=== PATIENT | female | born 1965 | race Caucasian/White ===

== ENCOUNTER 2023-08-21 10:33 | Outpatient (OUT) | payer OTHER, SELFPAY ==
--- NOTE | 2023-08-21 | ECG_ITS ---
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
--- NOTE | 2023-08-21 11:06 | CA_ITS ---
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1965 Requested By: [id number] Order Number: [id number] Reading MD: ESTEVAN HUTCHINSON Interpretive Statements Predominant rhythm is sinus w/ average rate of 72 bpm TAchycardia - max rate of 119 bpm (sinus tachycardia) - 1 episode of PSVT with longest duration of 3 beats - longest episode of 4min 7sec with rates between 105-115 bpm Bradycardia - min rate of 51 bpm, occurring during sleep - longest episode of 4min 2sec with rates between 53-57 bpm VEntricular ectopy - 250 total (<1% total) - 6 couplets - 244 PVC Patient triggered events: 14 - associated with symptoms of palpitations, lightheadedness, chest pain - associated with NSR Impression: Predominant rhythm is sinus w/ average rate of 72 bpm Fastest rate of 119 bpm (sinus tachycardia) and slowest rate of 51 bpm (occurring during sleep) 244 PVC and 6 couplets No atrial fibrillation No pauses or blocks Electronically Signed On 09-01-2023 20:43:37 EST by ESTEVAN HUTCHINSON
== END 2023-08-21 10:34 | disposition home or self-care (01) ==
LOC: CARD 10:38
DX: R00.0 Tachycardia, unspecified (principal)
CPT/HCPCS: 93005; 93242

== ENCOUNTER 2023-11-18 09:33 | Outpatient (OUT) | payer OTHER, SELFPAY ==
--- NOTE | 2023-11-18 09:37 | US_ITS ---
The [address] [address] Patient Name: FLOYD KELLER MRN: [id number] date: 1965 Sex: F Assigned Patient Location: [place] Current Patient Location: Accession/Order Number: [id number] Exam Date: 11/18/2023 09:40 Report Date: 11/18/2023 11:14 At the request of: NON-STAFF PHYSICIAN Procedure: US thyroid EXAMINATION: US thyroid HISTORY: oropharyngeal dysphasia R13.12, History of goiter Z86.39 COMPARISON: No relevant comparison available. TECHNIQUE: Sonographic images of the thyroid gland were obtained. FINDINGS: The right thyroid lobe is normal in size, contour and homogeneous echotexture measuring 5.1 x 1.3 x 1.2 cm. No focal nodules. The thyroid isthmus is normal measuring 1.1 mm. No nodules. The left thyroid lobe is normal in size, contour and homogeneous echotexture measuring 5.0 x 1.2 x 1.4 cm. No focal nodules US/US thyroid IMPRESSION: Normal examination. Electronically authenticated by: DAVID LOWERY Date: 11/18/2023 11:14
--- OUTSIDE RECORDS SUMMARY | 2023-11-18 09:45 | XMS_ITS | CCD ---
Author Organization [facility] Care Team Providers Care Regional Sales Coordinator Name Role Phone DO Stefan Alford Emergency Provider Unavai labkeya NO FAMILY, PHYSICIAN Primary Care Provider Unava ilable DO Cyril Amaya A Attending Provider [phone] Nam, Amaya Unavailable FRANCISCA May Attending Provider NO FAMILY, PHYSICIAN Primary Care Unavailable Stefan Alford Admitting Unavailable Stefan Alford Attending Unavailable NON STAFF Primary Care Unavailable Alyssa May Admitting Unavailable Alyssa May Attending Unavailable Cyril, Amaya A Primary Care Unavailable Nam, Amaya A Attending Unavailable Cyril, Amaya A Admitting Unavailable Nam, Amaya A Primary Care Unavailable Cyril, Amaya A Attending Unavailable Cyril, Amaya A Admitting Unavailable Nam, Amaya A Primary Care Unavailable Nam, Amaya A Attending Unavailable Nam, Amaya A Admitting Unavailable NO FAMILY, PHYSICIAN Primary Care Unavailable Nam, Amaya A Admitting Unavailable Nam, Amaya A Attending Unavailable Nam, Amaya A Primary Care Unavailable Nam, Amaya A Attending Unavailable Cyril, Amaya A Admitting Unavailable Medications Current Medications Medication Drug Class(es) Dates Sig (Normalized) Sig (Original) [id number] 60 actuat albuterol 0.09 mg/actuat metered dose inhaler (16 sources) beta2-Adrenergic Agonist Start: 12-17-2022 take 1 puff(s) by inhalation every four hours as needed Albuterol Sulfate HFA 108 (90 Base) MCG/ACT 1 puff as needed Inhalation every 4 hrs for 30 days PRN November, Active Start: 12-17-2022 take 1 puff(s) by in halation every four hours as needed Albuterol Sulfate HFA 108 (90 Base) MCG/ACT 1 puff as needed Inhalation every 4 hrs for 30 days PRN November, Active Start: 12-17-2022 take 1 puff(s) by in halation every four hours as needed Albuterol Sulfate HFA 108 (90 Base) MCG/ACT 1 puff as needed Inhalation every 4 hrs for 30 days PRN November, Active atorvastatin 10 mg oral tablet (12 sources) HMG-CoA Reductase Inhibitor Start: 01-21-2023 take 1 tablet by mouth every twenty-four hours Atorvastatin Calcium 10 MG 1 tablet Orally Once a day for 90 days Jan, Active 24 hr buPROPion hydrochloride 150 mg extended release oral tablet (4 sources) Aminoketone Start: 03-20-2023 take 1 tablet by mouth every twenty-four hours buPROPion HCl ER (XL) 150 MG 1 tablet in the morning Orally Once a day for 30 days Mar, Active clonazePAM 1 mg oral tablet (16 sources) Benzodiazepine Start: 06-15-2023 clonazePAM 1 MG TAKE 1 TABLET BY MOUTH EVERY DAY FOR 30 DAYS for 30 May, Active Start: 03-20-2023 take 1 tablet by shira once daily as needed clonazePAM 1 MG 1 tablet PRN Orally Once a day for 30 days Mar, Active take 1 tablet by shira once daily as needed clonazePAM 1 MG 1 tablet PRN Orally Once a day for 30 days Active DULoxetine 30 mg delayed release oral capsule (20 sources) Serotonin and Norepinephrine Reuptake Inhibitor take 1 capsule by mouth once daily at bedtime DULoxetine HCl 30 MG 1 capsule at bedtime along with a 60 mg capsule Orally Once a day for 90 days Active take 1 capsule by mo [facility] at bedtime, then take 1 capsule by mouth once daily DULoxetine HCl 60 MG 1 capsule at bedtim e with one 30 mg capsule Orally Once a day for 90 days Active levocetirizine dihydrochloride 5 mg oral tablet (16 sources) Histamine-1 Receptor Antagonist take 1 tablet by mouth every twenty-four hours Xyzal 5 MG 1 tablet in the evening Orally Once a day Active nortriptyline 25 mg oral capsule (16 sources) Tricyclic Antidepressant take 2 capsules by mouth at bedtime Nortriptyline HCl 25 MG 2 capsules Orally at bedtime for 90 days Active Problems Active Problems Problem Classification Problem Date Documented Date Episodic/Chronic Anxiety disorders (19 sources) Generalized anxiety disorder; Translations: [Generalized anxiety disorder] Onset: 12-29-2022 Chronic Asthma (17 sources) Exercise induced bronchospasm; Translations: [Exercise induced bronchospasm] Chronic Cardiac dysrhythmias (1 source) Tachycardia, unspecified; Translations: [Tachycardia, unspecified] Onset: 08-12-2023 Episodic Disorders of lipid metabolism (15 sources) Hyperlipidemia, unspecified; Translations: [Hyperlipidemia] Onset: 03-04-2023 Chronic Malaise and fatigue (1 source) Other fatigue; Translations: [Other fatigue] Onset: 08-12-2023 Episodic Mood disorders (5 sources) Major depressive disorder, single episode, unspecified; Translations: [Depression] Chronic Other aftercare (1 source) Other extermination inspector (current) drug therapy Episodic Other connective tissue disease (7 sources) Pain in upper limb; Translations: [Pain in arm, unspecified] 12-12-2022 Episodic Other ear and sense organ disorders (1 source) Otalgia, right ear Episodic Other nervous system disorders (16 sources) Peripheral nerve disease ; Translations: [Polyneuropathy, unspecified] Chronic Other nervous system disorders (3 sources) Polyneuropathy, unspecified; Translations: [Polyneuropathy, unspecified] Onset: 12-29-2022 Chronic Other nervous system disorders (6 sources) Reduced concentration; Translations: [Attention and concentration deficit] Chronic Other screening for suspected conditions (not mental disorders or infectious disease) (2 sources) Encounter for other screening for malignant neoplasm of breast; Translations: [Encounter for screening for malignant neoplasm of colon] Episodic Other skin disorders (1 source) Disorder of the skin and subcutaneous tissue, unspecified Episodic Otitis media and related conditions (1 source) Other specified disorders of Eustachian tube, right ear Episodic Residual codes; unclassified (1 source) Flushing; Translations: [Flushing] Onset: 08-12-2023 Episodic Unclassified (1 source) Encounter for screening mammogram for malignant neoplasm of breast; Translations: [Encounter for screening mammogram for malignant neoplasm of breast] Onset: 01-08-2023 Unclassified (1 source) Encounter for screening for cardiovascular disorders; Translations: [Encounter for screening for cardiovascular disorders] Onset: 01-02-2023 Past or Other Problems Problem Classification Problem Date Documented Da te Episodic/Chronic Genitourinary symptoms and ill-defined conditions (2 sources) Dysuria; Translations: [Dysuria] Onset: 12-17-2022 Episodic Other connective tissue disease (1 source) Pain in left arm; Translations: [Pain in left arm] Onset: 12-12-2022 Episodic Results Test Name Value Interpretation Reference Range Facility Alanine aminotransferase [En zymatic activity/volume] in Serum or PlasmaOrdered By: Alyssa May on 08-12-2023 ALT [Catalytic activity/Vol] 16 U/L 7-52 [facility] Albumin [Mass/volume] in Ser um or Plasma by Bromocresol green (BCG) dye binding methoOrdered By: Alyssa May on 08-12-2023 Albumin BCG dye [Mass/Vol] 4.4 g/dL 3.5-5.7 [facility] Alkaline phosphatase [Enzyma tic activity/volume] in Serum or PlasmaOrdered By: Alyssa May on 08-12-2023 ALP [Catalytic activity/Vol] 81 U/L 34-104 [facility] Aspartate aminotransferase [ Enzymatic activity/volume] in Serum or PlasmaOrdered By: Alyssa May on 08-12-2023 AST [Catalytic activity/Vol] 17 U/L 13-39 [facility] Basophils Auto (Bld) [#/Vol] Ordered By: Alyssa May on 08-12-2023 Basophils (Bld) [#/Vol] 0.1 10*3/uL 0.0-0.2 [facility] Basophils/100 WBC Auto (Bld) Ordered By: Alsysa May on 08-12-2023 Basophils/100 WBC (Bld) 1.1 % . [facility] Bilirubin.total [Mass/volume ] in Serum or PlasmaOrdered By: Alyssa May on 08-12-2023 Bilirubin [Mass/Vol] 0.8 mg/dL 0.3-1.0 [facility] Calcium [Mass/volume] in Ser um or PlasmaOrdered By: Alyssa May on 08-12-2023 Calcium [Mass/Vol] 9.4 mg/dL 8.6-10.3 [facility] Carbon dioxide, total [Moles /volume] in Serum or PlasmaOrdered By: Alyssa May on 08-12-2023 CO2 [Moles/Vol] 26.2 mmol/L 21.0-31.0 [facility] Chloride [Moles/volume] in S thomas or PlasmaOrdered By: Alyssa May on 08-12-2023 Chloride [Moles/Vol] 106 mmol/L 98-107 [facility] Cholesterol [Mass/volume] in Serum or PlasmaOrdered By: Alyssa May on 08-12-2023 Cholesterol [Mass/Vol] 147 mg/dL 140-200 [facility] Comment on above: Chol less than 200 m g/dl low riskChol 201-239 mg/dl borderline riskChol 240 mg/dl and greater high risk Cholesterol in LDL Calc [Mas s/Vol]Ordered By: Alyssa May on 08-12-2023 Cholesterol in LDL [Mass/Vol] 63 mg/dL 0-100 [facility] Comment on above: LDL ATP III CLASSIFI CATIONLDL less than 100 mg/dL OptimalLDL 100-129 mg/dL Near or above optimalLDL 130-159 mg/dL Borderline highLDL 160-189 mg/dL HighLDL greater than 189 mg/dL Very high Cholesterol in VLDL Calc [Ma ss/Vol]Ordered By: Alyssa May on 08-12-2023 Cholesterol in VLDL [Mass/Vol] 13 mg/dL [facility] Complete Blood Count Auto Di ffon 08-12-2023 Basophils (Bld) [#/Vol] 0.1 10*3/uL Normal 0.0-0.2 [facility] Comment on above: Order Comment: Reaso n for Exam Tachycardia;Other fatigue Result Comment: PERF ORMED BY: [place] [address] PATHOLOGIST DANCE HALL HOSTESS CHEYENNE MCCOY M.D. Performed By: #### L H #### [facility] , #### [id number], TSH3 wRFLX, LIPID, [id number], CMP, FSH, CBC #### [facility] [address] [place] [address] Basophils/100 WBC (Bld) 1.1 % Normal . [facility] Comment on above: Order Comment: Reaso n for Exam Tachycardia;Other fatigue Performed By: #### L H #### [facility] , #### [id number], TSH3 wRFLX, LIPID, [id number], CMP, FSH, CBC #### [facility] [address] [place] [address] Eosinophils (Bld) [#/Vol] 0.2 10*3/uL Normal 0.0-0.45 [facility] Comment on above: Order Comment: Reaso n for Exam Tachycardia;Other fatigue Performed By: #### L H #### [facility] , #### [id number], TSH3 wRFLX, LIPID, [id number], CMP, FSH, CBC #### [address] Eosinophils/100 WBC (Bld) 3.4 % Normal . [facility] Comment on above: Order Comment: Reaso n for Exam Tachycardia;Other fatigue Performed By: #### L H #### [facility] , #### [id number], TSH3 wRFLX, LIPID, [id number], CMP, FSH, CBC #### [address] Erythrocyte distribution width (RBC) [Ratio] 12.8 % Normal 11.9-15.3 [facility] Comment on above: Order Comment: Reaso n for Exam Tachycardia;Other fatigue Performed By: #### L H #### [facility] , #### [id number], TSH3 wRFLX, LIPID, [id number], CMP, FSH, CBC #### [address] Hematocrit (Bld) [Volume fraction] 41.4 % Normal 34.0-46.4 [facility] Comment on above: Order Comment: Reaso n for Exam Tachycardia;Other fatigue Performed By: #### L H #### [facility] , #### [id number], TSH3 wRFLX, LIPID, [id number], CMP, FSH, CBC #### [address] Hemoglobin (Bld) [Mass/Vol] 14.0 g/dL Normal 11.8-15.4 [facility] Comment on above: Order Comment: Reaso n for Exam Tachycardia;Other fatigue Performed By: #### L H #### [facility] , #### [id number], TSH3 wRFLX, LIPID, [id number], CMP, FSH, CBC #### [facility] [address] Lymphocytes (Bld) [#/Vol] 1.1 10*3/uL Normal 1.00-4.8 [facility] Comment on above: Order Comment: Reaso n for Exam Tachycardia;Other fatigue Performed By: #### L H #### [facility] , #### [id number], TSH3 wRFLX, LIPID, [id number], CMP, FSH, CBC #### [address] Lymphocytes/100 WBC (Bld) 22.2 % Normal . [facility] Comment on above: Order Comment: Reaso n for Exam Tachycardia;Other fatigue Performed By: #### L H #### [facility] , #### [id number], TSH3 wRFLX, LIPID, [id number], CMP, FSH, CBC #### [place] [id number] [facility] MCH (RBC) [Entitic mass] 29.3 pg Normal 24.7-34.3 [facility] Comment on above: Order Comment: Reaso n for Exam Tachycardia;Other fatigue Performed By: #### L H #### [facility] , #### [id number], TSH3 wRFLX, LIPID, [id number], CMP, FSH, CBC #### [facility] [address] [place], [place] [id number] [facility] MCV (RBC) [Entitic vol] 86.9 fL Normal 80-100 [facility] Comment on above: Order Comment: Reaso n for Exam Tachycardia;Other fatigue Performed By: #### L H #### [facility] , #### [id number], TSH3 wRFLX, LIPID, [id number], CMP, FSH, CBC #### [facility] [address] [place] [address] Mean Corpuscular HGB Conc 33.7 g/dL Normal 32.0-35.0 [facility] Comment on above: Order Comment: Reaso n for Exam Tachycardia;Other fatigue Performed By: #### L H #### [facility] , #### [id number], TSH3 wRFLX, LIPID, [id number], CMP, FSH, CBC #### [facility] [address] [place] [address] Monocytes (Bld) [#/Vol] 0.3 10*3/uL Normal 0.0-0.8 [facility] Comment on above: Order Comment: Reaso n for Exam Tachycardia;Other fatigue Performed By: #### L H #### [facility] , #### [id number], TSH3 wRFLX, LIPID, [id number], CMP, FSH, CBC #### [address] Monocytes/100 WBC (Bld) 5.2 % Normal . [facility] Comment on above: Order Comment: Reaso n for Exam Tachycardia;Other fatigue Performed By: #### L H #### [facility] , #### [id number], TSH3 wRFLX, LIPID, [id number], CMP, FSH, CBC #### [facility] [address] [place] [address] Neutrophils (Bld) [#/Vol] 3.5 10*3/uL Normal 1.8-7.7 [facility] Comment on above: Order Comment: Reaso n for Exam Tachycardia;Other fatigue Performed By: #### L H #### [facility] , #### [id number], TSH3 wRFLX, LIPID, [id number], CMP, FSH, CBC #### [facility] [address] [place] [address] Neutrophils/100 WBC (Bld) 68.1 % Normal . [facility] Comment on above: Order Comment: Reaso n for Exam Tachycardia;Other fatigue Performed By: #### L H #### [facility] , #### [id number], TSH3 wRFLX, LIPID, [id number], CMP, FSH, CBC #### [facility] [address] [place] [address] NRBC% 0.1 /100{WBC} Normal 0-0.5 [facility] Comment on above: Order Comment: Reaso n for Exam Tachycardia;Other fatigue Performed By: #### L H #### [facility] , #### [id number], TSH3 wRFLX, LIPID, [id number], CMP, FSH, CBC #### [address] Platelet mean volume (Bld) [Entitic vol] 8.8 fL Normal 6.3-10.7 [facility] Comment on above: Order Comment: Reaso n for Exam Tachycardia;Other fatigue Performed By: #### L H #### [facility] , #### [id number], TSH3 wRFLX, LIPID, [id number], CMP, FSH, CBC #### [facility] [address] [place] [address] [place] Platelets (Bld) [#/Vol] 231 10*3/uL Normal 150-450 [facility] Comment on above: Order Comment: Reaso n for Exam Tachycardia;Other fatigue Performed By: #### L H #### [facility] , #### [id number], TSH3 wRFLX, LIPID, [id number], CMP, FSH, CBC #### [facility] [address] [place], [place] [id number] [facility] RBC (Bld) [#/Vol] 4.77 10*6/uL Normal 3.60-5.00 [facility] Comment on above: Order Comment: Reaso n for Exam Tachycardia;Other fatigue Performed By: #### L H #### [facility] , #### [id number], TSH3 wRFLX, LIPID, [id number], CMP, FSH, CBC #### [facility] [address] WBC (Bld) [#/Vol] 5.1 10*3/uL Normal 3.8-11.6 [facility] Comment on above: Order Comment: Reaso n for Exam Tachycardia;Other fatigue Performed By: #### L H #### [facility] , #### [id number], TSH3 wRFLX, LIPID, [id number], CMP, FSH, CBC #### [facility] [address] [place] [address] Comprehensive Metabolic Pane eamon 08-12-2023 Albumin [Mass/Vol] 4.4 g/dL Normal 3.5-5.7 [facility] Comment on above: Order Comment: Reaso n for Exam Tachycardia;Other fatigue Reason for Exam Other hyperlipidemia Reason for Exam Other fatigue Reason for Exam Hot flashes Reason for Exam Major depressive disorder, recurrent episode with anxious di Performed By: #### L H #### [facility] , #### [id number], TSH3 wRFLX, LIPID, [id number], CMP, FSH, CBC #### [facility] [address] Albumin/Globulin [Mass ratio] 1.8 {ratio} Normal [facility] Comment on above: Order Comment: Reaso n for Exam Tachycardia;Other fatigue Reason for Exam Other hyperlipidemia Reason for Exam Other fatigue Reason for Exam Hot flashes Reason for Exam Major depressive disorder, recurrent episode with anxious di Performed By: #### L H #### [facility] , #### [id number], TSH3 wRFLX, LIPID, [id number], CMP, FSH, CBC #### [facility] [address] ALP [Catalytic activity/Vol] 81 U/L Normal 34-104 [facility] Comment on above: Order Comment: Reaso n for Exam Tachycardia;Other fatigue Reason for Exam Other hyperlipidemia Reason for Exam Other fatigue Reason for Exam Hot flashes Reason for Exam Major depressive disorder, recurrent episode with anxious di Performed By: #### L H #### [facility] , #### [id number], TSH3 wRFLX, LIPID, [id number], CMP, FSH, CBC #### [facility] [address] ALT [Catalytic activity/Vol] 16 U/L Normal 7-52 [facility] Comment on above: Order Comment: Reaso n for Exam Tachycardia;Other fatigue Reason for Exam Other hyperlipidemia Reason for Exam Other fatigue Reason for Exam Hot flashes Reason for Exam Major depressive disorder, recurrent episode with anxious di Performed By: #### L H #### [facility] , #### [id number], TSH3 wRFLX, LIPID, [id number], CMP, FSH, CBC #### [facility] [address] Anion gap [Moles/Vol] 12.0 mmol/L Normal 6.0-15.0 [facility] Comment on above: Order Comment: Reaso n for Exam Tachycardia;Other fatigue Reason for Exam Other hyperlipidemia Reason for Exam Other fatigue Reason for Exam Hot flashes Reason for Exam Major depressive disorder, recurrent episode with anxious di Performed By: #### L H #### [facility] , #### [id number], TSH3 wRFLX, LIPID, [id number], CMP, FSH, CBC #### [facility] [address] [place] [address] [place] AST [Catalytic activity/Vol] 17 U/L Normal 13-39 [facility] Comment on above: Order Comment: Reaso n for Exam Tachycardia;Other fatigue Reason for Exam Other hyperlipidemia Reason for Exam Other fatigue Reason for Exam Hot flashes Reason for Exam Major depressive disorder, recurrent episode with anxious di Performed By: #### L H #### [facility] , #### [id number], TSH3 wRFLX, LIPID, [id number], CMP, FSH, CBC #### [facility] [address] [place] [id number] [facility] Bilirubin [Mass/Vol] 0.8 mg/dL Normal 0.3-1.0 [facility] Comment on above: Order Comment: Reaso n for Exam Tachycardia;Other fatigue Reason for Exam Other hyperlipidemia Reason for Exam Other fatigue Reason for Exam Hot flashes Reason for Exam Major depressive disorder, recurrent episode with anxious di Performed By: #### L H #### [facility] , #### [id number], TSH3 wRFLX, LIPID, [id number], CMP, FSH, CBC #### [facility] [address] Calcium [Mass/Vol] 9.4 mg/dL Normal 8.6-10.3 [facility] Comment on above: Order Comment: Reaso n for Exam Tachycardia;Other fatigue Reason for Exam Other hyperlipidemia Reason for Exam Other fatigue Reason for Exam Hot flashes Reason for Exam Major depressive disorder, recurrent episode with anxious di Performed By: #### L H #### [facility] , #### [id number], TSH3 wRFLX, LIPID, [id number], CMP, FSH, CBC #### [facility] [address] [place] [id number] [place] Chloride [Moles/Vol] 106 mmol/L Normal 98-107 [facility] Comment on above: Order Comment: Reaso n for Exam Tachycardia;Other fatigue Reason for Exam Other hyperlipidemia Reason for Exam Other fatigue Reason for Exam Hot flashes Reason for Exam Major depressive disorder, recurrent episode with anxious di Performed By: #### L H #### [facility] , #### [id number], TSH3 wRFLX, LIPID, [id number], CMP, FSH, CBC #### [facility] [address] [place] [id number] [place] CO2 [Moles/Vol] 26.2 mmol/L Normal 21.0-31.0 [facility] Comment on above: Order Comment: Reaso n for Exam Tachycardia;Other fatigue Reason for Exam Other hyperlipidemia Reason for Exam Other fatigue Reason for Exam Hot flashes Reason for Exam Major depressive disorder, recurrent episode with anxious di Performed By: #### L H #### [facility] , #### [id number], TSH3 wRFLX, LIPID, [id number], CMP, FSH, CBC #### [facility] [address] Creatinine [Mass/Vol] 0.84 mg/dL Normal 0.60-1.20 [facility] Comment on above: Order Comment: Reaso n for Exam Tachycardia;Other fatigue Reason for Exam Other hyperlipidemia Reason for Exam Other fatigue Reason for Exam Hot flashes Reason for Exam Major depressive disorder, recurrent episode with anxious di Performed By: #### L H #### [facility] , #### [id number], TSH3 wRFLX, LIPID, [id number], CMP, FSH, CBC #### [facility] [address] GFR/1.73 sq M.predicted MDRD (S/P/Bld) [Vol rate/Area] mL/min/{1.73_m2} [facility] Comment on above: Order Comment: Reaso n for Exam Tachycardia;Other fatigue Reason for Exam Other hyperlipidemia Reason for Exam Other fatigue Reason for Exam Hot flashes Reason for Exam Major depressive disorder, recurrent episode with anxious di Performed By: #### L H #### [facility] , #### [id number], TSH3 wRFLX, LIPID, [id number], CMP, FSH, CBC #### [facility] [address] [place] [address] [place] Globulin (S) [Mass/Vol] 2.4 g/dL [facility] Comment on above: Order Comment: Reaso n for Exam Tachycardia;Other fatigue Reason for Exam Other hyperlipidemia Reason for Exam Other fatigue Reason for Exam Hot flashes Reason for Exam Major depressive disorder, recurrent episode with anxious di Performed By: #### L H #### [facility] , #### [id number], TSH3 wRFLX, LIPID, [id number], CMP, FSH, CBC #### [facility] [address] Glucose [Mass/Vol] 97 mg/dL Normal 70-100 [facility] Comment on above: Order Comment: Reaso n for Exam Tachycardia;Other fatigue Reason for Exam Other hyperlipidemia Reason for Exam Other fatigue Reason for Exam Hot flashes Reason for Exam Major depressive disorder, recurrent episode with anxious di Result Comment: [facility] Glucose Reference Range is dependent on time and content of last meal. Glucose of more than 200 mg/dL in a nonstressed, ambulatory subject supports the diagnosis of Diabetes Mellitus. ADA recommended reference range Performed By: #### L H #### [facility] , #### [id number], TSH3 wRFLX, LIPID, [id number], CMP, FSH, CBC #### [facility] [address] [place] [address] Potassium [Moles/Vol] 4.2 mmol/L Normal 3.5-5.1 [facility] Comment on above: Order Comment: Reaso n for Exam Tachycardia;Other fatigue Reason for Exam Other hyperlipidemia Reason for Exam Other fatigue Reason for Exam Hot flashes Reason for Exam Major depressive disorder, recurrent episode with anxious di Performed By: #### L H #### [facility] , #### [id number], TSH3 wRFLX, LIPID, [id number], CMP, FSH, CBC #### [facility] [address] [place] [id number] [facility] Protein [Mass/Vol] 6.8 g/dL Normal 6.4-8.9 [facility] Comment on above: Order Comment: Reaso n for Exam Tachycardia;Other fatigue Reason for Exam Other hyperlipidemia Reason for Exam Other fatigue Reason for Exam Hot flashes Reason for Exam Major depressive disorder, recurrent episode with anxious di Performed By: #### L H #### [facility] , #### [id number], TSH3 wRFLX, LIPID, [id number], CMP, FSH, CBC #### [facility] [address] [place] [address] [place] Sodium [Moles/Vol] 140 mmol/L Normal 136-145 [facility] [facility] Comment on above: Order Comment: Reaso n for Exam Tachycardia;Other fatigue Reason for Exam Other hyperlipidemia Reason for Exam Other fatigue Reason for Exam Hot flashes Reason for Exam Major depressive disorder, recurrent episode with anxious di Performed By: #### L H #### [facility] , #### [id number], TSH3 wRFLX, LIPID, [id number], CMP, FSH, CBC #### [facility] [address] [place] [address] [place] Urea nitrogen [Mass/Vol] 15 mg/dL Normal 7-25 [facility] Comment on above: Order Comment: Reaso n for Exam Tachycardia;Other fatigue Reason for Exam Other hyperlipidemia Reason for Exam Other fatigue Reason for Exam Hot flashes Reason for Exam Major depressive disorder, recurrent episode with anxious di Performed By: #### L H #### [facility] , #### [id number], TSH3 wRFLX, LIPID, [id number], CMP, FSH, CBC #### [facility] [address] [place] [address] [place] Creatinine [Mass/volume] in Serum or PlasmaOrdered By: Alyssa May on 08-12-2023 Creatinine [Mass/Vol] 0.84 mg/dL 0.60-1.20 [facility] Eosinophils Auto (Bld) [#/Vo l]Ordered By: Alyssa May on 08-12-2023 Eosinophils (Bld) [#/Vol] 0.2 10*3/uL 0.0-0.45 [facility] Eosinophils/100 WBC Auto (Bl d)Ordered By: Alyssa May on 08-12-2023 Eosinophils/100 WBC (Bld) 3.4 % . [facility] Erythrocyte distribution wid th Auto (RBC) [Ratio]Ordered By: Alyssa May on 08-12-2023 Erythrocyte distribution width (RBC) [Ratio] 12.8 % 11.9-15.3 [facility] Folate [Mass/volume] in Seru m or PlasmaOrdered By: Alyssa May on 08-12-2023 Folate [Mass/Vol] 43.0 ng/mL >5.9 [facility] Comment on above: Folate reference ran ge: >5.9 ng/mlThe WHO technical consultation on folate and vitamin [id number] has determined that folate concentrations lessthan 4 ng/ml are considered deficient. Follicle Stimulating Hormone on 08-12-2023 Follicle Stimulating Hormone 84.6 m[iU]/mL Normal [facility] Comment on above: Order Comment: Reaso n for Exam Tachycardia;Other fatigue Reason for Exam Other hyperlipidemia Reason for Exam Other fatigue Reason for Exam Hot flashes Reason for Exam Major depressive disorder, recurrent episode with anxious di Result Comment: FEMA LE NORMALS (PREMENOPAUSE) MID-FOLLICULAR PHASE: 3.9-8.8 mIU/mL MID-CYCLE PEAK: 4.5-22.5 mIU/mL MID-LUTEAL PHASE: 1.8-5.1 mIU/mL FEMALE NORMALS (POSTMENOPAUSE): 16.7-113.6 mIU/mL MALE NORMALS: 1.3-19.3 mIU/mL Performed By: #### L H ####[facility] ,#### [id number], TSH3 wRFLX, LIPID, [id number], CMP, FSH, CBC ####[facility] [id number] [place] [id number] [facility] Follitropin [Units/volume] i n Serum or PlasmaOrdered By: Alyssa May on 08-12-2023 Follitropin Qn 84.6 m[IU]/mL [facility] Comment on above: FEMALE NORMALS (SORAYA ENOPAUSE) MID-FOLLICULAR PHASE: 3.9-8.8 mIU/mL MID-CYCLE PEAK: 4.5-22.5 mIU/mL MID-LUTEAL PHASE: 1.8-5.1 mIU/mLFEMALE NORMALS (POSTMENOPAUSE): 16.7-113.6 mIU/mLMALE NORMALS: 1.3-19.3 mIU/mL Globulin Calc (S) [Mass/Vol] Ordered By: Alyssa May on 08-12-2023 Globulin (S) [Mass/Vol] 2.4 g/dL [facility] Glucose [Mass/volume] in Ser um or PlasmaOrdered By: Alyssa May on 08-12-2023 Glucose [Mass/Vol] 97 mg/dL 70-100 [facility] Comment on above: ADA recommended refe rence rangeRandom Glucose Reference Range is dependent on time and content of last meal. Glucose of more than 200 mg/dL in a nonstressed, ambulatory subject supports the diagnosis of Diabetes Mellitus. Hematocrit Auto (Bld) [Volum e fraction]Ordered By: Alyssa May on 08-12-2023 Hematocrit (Bld) [Volume fraction] 41.4 % 34.0-46.4 [facility] Hemoglobin [Mass/volume] in BloodOrdered By: Alyssa May on 08-12-2023 Hemoglobin (Bld) [Mass/Vol] 14.0 g/dL 11.8-15.4 [facility] Leukocytes [#/volume] correc kaz for nucleated erythrocytes in Blood by Automated counOrdered By: Alyssa May on 08-12-2023 WBC corrected for nucl RBC Auto (Bld) [#/Vol] 5.1 10*3/uL 3.8-11.6 [facility] Lipid Panelon 08-12-2023 Cholesterol [Mass/Vol] 147 mg/dL Normal 140-200 [facility] Comment on above: Order Comment: Reaso n for Exam Tachycardia;Other fatigue Reason for Exam Other hyperlipidemia Reason for Exam Other fatigue Reason for Exam Hot flashes Reason for Exam Major depressive disorder, recurrent episode with anxious di Result Comment: Chol less than 200 mg/dl low risk Chol 201-239 mg/dl borderline risk Chol 240 mg/dl and greater high risk Performed By: #### L H ####[facility] ,#### [id number], TSH3 wRFLX, LIPID, [id number], CMP, FSH, CBC ####[facility] [address] [place] [id number] [facility] Cholesterol in HDL [Mass/Vol] 71 mg/dL Normal 23-92 [facility] Comment on above: Order Comment: Reaso n for Exam Tachycardia;Other fatigue Reason for Exam Other hyperlipidemia Reason for Exam Other fatigue Reason for Exam Hot flashes Reason for Exam Major depressive disorder, recurrent episode with anxious di Result Comment: HDL CHOL ATP-III CLASSIFICATION Cardiovascular Risk HDL > or equal to 60 mg/dL LOW HDL < 40 mg/dL HIGH Performed By: #### L H ####[facility] ,#### [id number], TSH3 wRFLX, LIPID, [id number], CMP, FSH, CBC ####[address] Cholesterol.total/Chol esterol in HDL [Mass ratio] 2.1 {ratio} Normal <5.0 [facility] Comment on above: Order Comment: Reaso n for Exam Tachycardia;Other fatigue Reason for Exam Other hyperlipidemia Reason for Exam Other fatigue Reason for Exam Hot flashes Reason for Exam Major depressive disorder, recurrent episode with anxious di Performed By: #### L H ####[facility] ,#### [id number], TSH3 wRFLX, LIPID, [id number], CMP, FSH, CBC ####[place] [id number] [facility] LDL Cholesterol,Calculated 63 mg/dL Normal 0-100 [facility] Comment on above: Order Comment: Reaso n for Exam Tachycardia;Other fatigue Reason for Exam Other hyperlipidemia Reason for Exam Other fatigue Reason for Exam Hot flashes Reason for Exam Major depressive disorder, recurrent episode with anxious di Result Comment: LDL ATP III CLASSIFICATION LDL less than 100 mg/dL Optimal LDL 100-129 mg/dL Near or above optimal LDL 130-159 mg/dL Borderline high LDL 160-189 mg/dL High LDL greater than 189 mg/dL Very high Performed By: #### L H ####[facility] ,#### [id number], TSH3 wRFLX, LIPID, [id number], CMP, FSH, CBC ####[place] [id number] [facility] Triglyceride w/Reflex 65 mg/dL Normal 0-149 [facility] Comment on above: Order Comment: Reaso n for Exam Tachycardia;Other fatigue Reason for Exam Other hyperlipidemia Reason for Exam Other fatigue Reason for Exam Hot flashes Reason for Exam Major depressive disorder, recurrent episode with anxious di Result Comment: TRIG ATP III CLASSIFICATION TRIG less than 150 mg/dL Normal TRIG 150-199 mg/dL Borderline high TRIG 200-500 mg/dL High TRIG greater than 500 mg/dL Very high Standard traceable to the Center for Disease Conrtrol and Prevention (CDC) test method. Performed By: #### L H ####[facility] ,#### [id number], TSH3 wRFLX, LIPID, [id number], CMP, FSH, CBC ####[place] [address] [address] VLDL CHOLESTEROL 13 mg/dL Normal [facility] Comment on above: Order Comment: Reaso n for Exam Tachycardia;Other fatigue Reason for Exam Other hyperlipidemia Reason for Exam Other fatigue Reason for Exam Hot flashes Reason for Exam Major depressive disorder, recurrent episode with anxious di Performed By: #### L H ####[facility] ,#### [id number], TSH3 wRFLX, LIPID, [id number], CMP, FSH, CBC ####[place] [address] [address] Luteinizing Hormoneon 2023 Luteinizing Hormone 42.1 m[iU]/mL Normal . [facility] Comment on above: Order Comment: Reaso n for Exam Hot flashes Result Comment: Adul t Female Range Follicular phase 2.4 - 12.6 Ovulation phase 14.0 - 95.6 Luteal phase 1.0 - 11.4 Postmenopausal 7.7 - 58.5 Performed at: [facility] [address] [id number] Dairy Nutritionist: Duy Chapman PhD, Phone: [phone] PERFORMED BY: [facility] [address] [place] [address] PATHOLOGIST DANCE HALL HOSTESS CHEYENNE MCCOY M.D. Performed By: #### L H ####[facility] ,#### [id number], TSH3 wRFLX, LIPID, [id number], CMP, FSH, CBC ####[place] [address] [place] [address] [facility] Lymphocytes Auto (Bld) [#/Vo l]Ordered By: Alyssa May on 08-12-2023 Lymphocytes (Bld) [#/Vol] 1.1 10*3/uL 1.00-4.8 [facility] Lymphocytes/100 WBC Auto (Bl d)Ordered By: Alyssa May on 08-12-2023 Lymphocytes/100 WBC (Bld) 22.2 % . [facility] MCH Auto (RBC) [Entitic mass ]Ordered By: Alyssa May on 08-12-2023 MCH (RBC) [Entitic mass] 29.3 pg 24.7-34.3 [facility] MCHC Auto (RBC) [Mass/Vol]Or dered By: Alyssa May on 08-12-2023 MCHC (RBC) [Mass/Vol] 33.7 g/dL 32.0-35.0 [facility] MCV Auto (RBC) [Entitic vol] Ordered By: Alyssa May on 08-12-2023 MCV (RBC) [Entitic vol] 86.9 fL 80-100 [facility] Monocytes Auto (Bld) [#/Vol] Ordered By: Alyssa May on 08-12-2023 Monocytes (Bld) [#/Vol] 0.3 10*3/uL 0.0-0.8 [facility] Monocytes/100 WBC Auto (Bld) Ordered By: Alyssa May on 08-12-2023 Monocytes/100 WBC (Bld) 5.2 % . [facility] Neutrophils Auto (Bld) [#/Vo l]Ordered By: Alyssa May on 08-12-2023 Neutrophils (Bld) [#/Vol] 3.5 10*3/uL 1.8-7.7 [facility] Neutrophils/100 WBC Auto (Bl d)Ordered By: Alyssa May on 08-12-2023 Neutrophils/100 WBC (Bld) 68.1 % . [facility] No Panel InformationOrdered By: Alyssa May on 08-12-2023 Estimated GFR (CKD-EPI) > 60.0 mL/Min [facility] Creatinine Clearance (Chem N/A [facility] Nucleated erythrocytes [Pres ence] in Blood by Automated countOrdered By: Alyssa May on 08-12-2023 Nucleated RBC Auto Ql (Bld) 0.1 /100{WBC} 0-0.5 [facility] Platelet mean volume Auto (B ld) [Entitic vol]Ordered By: Alyssa May on 08-12-2023 Platelet mean volume (Bld) [Entitic vol] 8.8 fL 6.3-10.7 [facility] Platelets Auto (Bld) [#/Vol] Ordered By: Alyssa May on 08-12-2023 Platelets (Bld) [#/Vol] 231 10*3/uL 150-450 [facility] Potassium [Moles/volume] in Serum or PlasmaOrdered By: Alyssa May on 08-12-2023 Potassium [Moles/Vol] 4.2 mmol/L 3.5-5.1 [facility] Protein [Mass/volume] in Ser um or PlasmaOrdered By: Alyssa May on 08-12-2023 Protein [Mass/Vol] 6.8 g/dL 6.4-8.9 [facility] RBC Auto (Bld) [#/Vol]Ordere d By: Alyssa May on 08-12-2023 RBC (Bld) [#/Vol] 4.77 10*6/uL 3.60-5.00 [facility] Serum or plasma albumin/glob ulin mass ratioOrdered By: Alyssa May on 08-12-2023 Albumin/Globulin [Mass ratio] 1.8 {ratio} [facility] Serum or plasma anion gap de terminationOrdered By: Alyssa May on 08-12-2023 Anion gap [Moles/Vol] 12.0 mmol/L 6.0-15.0 [facility] Serum or plasma high density lipoprotein (HDL) cholesterol measurementOrdered By: Alyssa May on 08-12-2023 Cholesterol in HDL [Mass/Vol] 71 mg/dL 23-92 [facility] Comment on above: HDL CHOL ATP-III CLA SSIFICATION Cardiovascular RiskHDL > or equal to 60 mg/dL LOWHDL < 40 mg/dL HIGH Serum or plasma total choles terol/high density lipoprotein (HDL) cholesterol mass ratOrdered By: Alyssa May on 08-12-2023 Cholesterol.total/Chol esterol in HDL [Mass ratio] 2.1 {ratio} <5.0 [facility] Sodium [Moles/volume] in Ser um or PlasmaOrdered By: Alyssa May on 08-12-2023 Sodium [Moles/Vol] 140 mmol/L 136-145 [facility] Thyroid Stim Hormone w/Rflxo n 08-12-2023 Thyroid Stim Hormone w/Rflx 1.01 u[iU]/mL Normal 0.45-5.33 [facility] Comment on above: Order Comment: Reaso n for Exam Tachycardia;Other fatigue Reason for Exam Other hyperlipidemia Reason for Exam Other fatigue Reason for Exam Hot flashes Reason for Exam Major depressive disorder, recurrent episode with anxious di Performed By: #### L H ####[facility] ,#### [id number], TSH3 wRFLX, LIPID, [id number], CMP, FSH, CBC ####[facility] [id number] Thyrotropin [Units/volume] i n Serum or PlasmaOrdered By: Alyssa May on 08-12-2023 TSH Qn 1.01 m[IU]/L 0.45-5.33 [facility] Triglyceride [Mass/volume] i n Serum or PlasmaOrdered By: Alyssa May on 08-12-2023 Triglyceride [Mass/Vol] 65 mg/dL 0-149 [facility] Comment on above: TRIG ATP III CLASSIF ICATIONTRIG less than 150 mg/dL NormalTRIG 150-199 mg/dL Borderline highTRIG 200-500 mg/dL High TRIG greater than 500 mg/dL Very highStandard traceable to the Center for Disease Conrtrol and Prevention (CDC) test method. Urea nitrogen [Mass/volume] in Serum or PlasmaOrdered By: Alyssa May on 08-12-2023 Urea nitrogen [Mass/Vol] 15 mg/dL 7-25 [facility] Vit. B12/Folate Profileon Cobalamin (Vitamin B12) [Mass/Vol] 278 pg/mL Normal 180-914 [facility] Comment on above: Order Comment: Reaso n for Exam Tachycardia;Other fatigue Reason for Exam Other hyperlipidemia Reason for Exam Other fatigue Reason for Exam Hot flashes Reason for Exam Major depressive disorder, recurrent episode with anxious di Performed By: #### L H ####[facility] ,#### [id number], TSH3 wRFLX, LIPID, [id number], CMP, FSH, CBC ####[facility] [place] [id number] [facility] Folate 43.0 ng/mL Normal >5.9 [facility] Comment on above: Order Comment: Reaso n for Exam Tachycardia;Other fatigue Reason for Exam Other hyperlipidemia Reason for Exam Other fatigue Reason for Exam Hot flashes Reason for Exam Major depressive disorder, recurrent episode with anxious di Result Comment: Debbie te reference range: >5.9 ng/ml The WHO technical consultation on folate and vitamin b12 deficiencies has determined that folate concentrations less than 4 ng/ml are considered deficient. Performed By: #### L H ####[facility] ,#### [id number], TSH3 wRFLX, LIPID, [id number], CMP, FSH, CBC ####[place] [address] [place] [id number] [facility] Vitamin B12 ser/plasOrdered By: Alyssa May on 08-12-2023 Cobalamin (Vitamin B12) [Mass/Vol] 278 pg/mL 180-914 [facility] Vitamin D 25 Hydroxy Totalon 08-12-2023 Vitamin D 25 Hydroxy Total 64.5 ng/mL Normal 30-100 [facility] Comment on above: Order Comment: Reaso n for Exam Tachycardia;Other fatigue Reason for Exam Other hyperlipidemia Reason for Exam Other fatigue Reason for Exam Hot flashes Reason for Exam Major depressive disorder, recurrent episode with anxious di Result Comment: CELINE MIN D STATUS 25(OH)VITAMIN D RANGE (ng/mL) Deficient <20 Insufficient 20 to <30 Sufficient 30 to 100 Reference: Mar MF,Andrew NC, Ashu BEGUM, et al. Evaluation,treatment, and prevention of vitamin D deficiency; an Endocrine Society clinical practice guideline. JCEM. 2010; 96(7):1911-30. PERFORMED BY: [address] [place] [id number] PATHOLOGIST DANCE HALL HOSTESS CHEYENNE MCCOY M.D. Performed By: #### L H ####[facility] ,#### [id number], TSH3 wRFLX, LIPID, [id number], CMP, FSH, CBC ####[facility] [id number] Vitamin D+Metabolites [Mass/ volume] in Serum or PlasmaOrdered By: Alyssa May on 08-12-2023 Vitamin D+Metabolites [Mass/Vol] 64.5 ng/mL 30-100 [facility] Comment on above: VITAMIN D STATUS 25( [place])VITAMIN D RANGE (ng/mL) Deficient <20 Insufficient 20 to <30Sufficient 30 to 100Reference: Mar MF,Andrew MARKS, Ashu BEGUM, et al. Evaluation,treatment, and prevention of vitamin D deficiency; an Endocrine Society clinical practice guideline. JCEM. 2010; 96(7):1911-30. WBC Auto (Bld) [#/Vol]Ordere d By: Alyssa May on 08-12-2023 WBC (Bld) [#/Vol] 5.1 10*3/uL 3.8-11.6 [facility] Alanine aminotransferase [En zymatic activity/volume] in Serum or PlasmaOrdered By: Amaya Nam on 03-04-2023 ALT [Catalytic activity/Vol] 21 U/L 7-52 [facility] Albumin [Mass/volume] in Ser um or Plasma by Bromocresol green (BCG) dye binding methoOrdered By: Amaya Nam on 03-04-2023 Albumin BCG dye [Mass/Vol] 4.2 g/dL 3.5-5.7 [facility] Alkaline phosphatase [Enzyma tic activity/volume] in Serum or PlasmaOrdered By: Amaya Nam on 03-04-2023 ALP [Catalytic activity/Vol] 81 U/L 34-104 [facility] Aspartate aminotransferase [ Enzymatic activity/volume] in Serum or PlasmaOrdered By: Amaya Nam on 03-04-2023 AST [Catalytic activity/Vol] 20 U/L 13-39 [facility] Bilirubin.direct [Mass/volum e] in Serum or PlasmaOrdered By: Amaya Nam on 03-04-2023 Bilirubin.direct [Mass/Vol] 0.10 mg/dL 0.03-0.18 [facility] Bilirubin.total [Mass/volume ] in Serum or PlasmaOrdered By: Amaya Nam on 03-04-2023 Bilirubin [Mass/Vol] 0.4 mg/dL 0.3-1.0 [facility] Cholesterol [Mass/volume] in Serum or PlasmaOrdered By: Amaya Nam on 03-04-2023 Cholesterol [Mass/Vol] 145 mg/dL 140-200 [facility] Comment on above: Chol less than 200 m g/dl low riskChol 201-239 mg/dl borderline riskChol 240 mg/dl and greater high risk Cholesterol in LDL Calc [Mas s/Vol]Ordered By: Amaya Nam on 03-04-2023 Cholesterol in LDL [Mass/Vol] 66 mg/dL 0-100 [facility] Comment on above: LDL ATP III CLASSIFI CATIONLDL less than 100 mg/dL OptimalLDL 100-129 mg/dL Near or above optimalLDL 130-159 mg/dL Borderline highLDL 160-189 mg/dL HighLDL greater than 189 mg/dL Very high Cholesterol in VLDL Calc [Ma ss/Vol]Ordered By: Amaya Nam on 03-04-2023 Cholesterol in VLDL [Mass/Vol] 13 mg/dL [facility] Globulin Calc (S) [Mass/Vol] Ordered By: Amaya Nam on 03-04-2023 Globulin (S) [Mass/Vol] 2.6 g/dL [facility] Hepatic Panelon 03-04-2023 Albumin [Mass/Vol] 4.2 g/dL Normal 3.5-5.7 [facility] Comment on above: Order Comment: Reaso n for Exam Hyperlipidemia Performed By: #### L IPID, HEPATIC #### [facility] [address] [place] [address] [place] Albumin/Globulin [Mass ratio] 1.6 {ratio} Normal [facility] Comment on above: Order Comment: Reaso n for Exam Hyperlipidemia Performed By: #### L IPID, HEPATIC #### [facility] [address] [place] [id number] [place] ALP [Catalytic activity/Vol] 81 U/L Normal 34-104 [facility] Comment on above: Order Comment: Reaso n for Exam Hyperlipidemia Performed By: #### L IPID, HEPATIC #### [facility] [address] [place] [id number] [place] ALT [Catalytic activity/Vol] 21 U/L Normal 7-52 [facility] Comment on above: Order Comment: Reaso n for Exam Hyperlipidemia Performed By: #### L IPID, HEPATIC #### [facility] [address] [place] [address] [place] AST [Catalytic activity/Vol] 20 U/L Normal 13-39 [facility] Comment on above: Order Comment: Reaso n for Exam Hyperlipidemia Performed By: #### L IPID, HEPATIC #### [facility] [address] [place] [id number] [place] Bilirubin [Mass/Vol] 0.4 mg/dL Normal 0.3-1.0 [facility] Comment on above: Order Comment: Reaso n for Exam Hyperlipidemia Performed By: #### L IPID, HEPATIC #### [facility] [address] [place], [place] [id number] [place] Bilirubin,Indirect 0.3 mg/dL Normal [facility] Comment on above: Order Comment: Reaso n for Exam Hyperlipidemia Performed By: #### L IPID, HEPATIC #### [facility] [address] [place], [place] [id number] [place] Bilirubin.indirect [Mass/Vol] 0.10 mg/dL Normal 0.03-0.18 [facility] Comment on above: Order Comment: Reaso n for Exam Hyperlipidemia Performed By: #### L IPID, HEPATIC #### [facility] [address] [place] [id number] [place] Globulin (S) [Mass/Vol] 2.6 g/dL Normal [facility] Comment on above: Order Comment: Reaso n for Exam Hyperlipidemia Performed By: #### L IPID, HEPATIC #### [facility] [address] [place], [place] [id number] [place] Protein [Mass/Vol] 6.8 g/dL Normal 6.4-8.9 [facility] Comment on above: Order Comment: Reaso n for Exam Hyperlipidemia Performed By: #### L IPID, HEPATIC #### [facility] [address] [place] [address] [place] Lipid Panelon 03-04-2023 Cholesterol [Mass/Vol] 145 mg/dL Normal 140-200 [facility] Comment on above: Order Comment: Reaso n for Exam Hyperlipidemia Result Comment: Chol less than 200 mg/dl low risk Chol 201-239 mg/dl borderline risk Chol 240 mg/dl and greater high risk Performed By: #### L IPID, HEPATIC #### [facility] [address] [place] [id number] [facility] Cholesterol in HDL [Mass/Vol] 66 mg/dL Normal 23-92 [facility] Comment on above: Order Comment: Reaso n for Exam Hyperlipidemia Result Comment: HDL CHOL ATP-III CLASSIFICATION Cardiovascular Risk HDL > or equal to 60 mg/dL LOW HDL < 40 mg/dL HIGH Performed By: #### L IPID, HEPATIC #### [facility] [address] Cholesterol.total/Chol esterol in HDL [Mass ratio] 2.2 {ratio} Normal <5.0 [facility] Comment on above: Order Comment: Reaso n for Exam Hyperlipidemia Result Comment: PERF ORMED BY: [place] [address] PATHOLOGIST DANCE HALL HOSTESS CHEYENNE MCCOY M.D. Performed By: #### L IPID, HEPATIC #### [facility] [address] LDL Cholesterol,Calculated 66 mg/dL Normal 0-100 [facility] Comment on above: Order Comment: Reaso n for Exam Hyperlipidemia Result Comment: LDL ATP III CLASSIFICATION LDL less than 100 mg/dL Optimal LDL 100-129 mg/dL Near or above optimal LDL 130-159 mg/dL Borderline high LDL 160-189 mg/dL High LDL greater than 189 mg/dL Very high Performed By: #### L IPID, HEPATIC #### [facility] [address] [place] [address] [place] Triglyceride w/Reflex 65 mg/dL Normal 0-149 [facility] Comment on above: Order Comment: Reaso n for Exam Hyperlipidemia Result Comment: TRIG ATP III CLASSIFICATION TRIG less than 150 mg/dL Normal TRIG 150-199 mg/dL Borderline high TRIG 200-500 mg/dL High TRIG greater than 500 mg/dL Very high Standard traceable to the Center for Disease Conrtrol and Prevention (CDC) test method. Performed By: #### L IPID, HEPATIC #### [facility] [address] [place] [address] [place] VLDL CHOLESTEROL 13 mg/dL Normal [facility] Comment on above: Order Comment: Reaso n for Exam Hyperlipidemia Performed By: #### L IPID, HEPATIC #### [facility] [address] [place] [address] [place] Protein [Mass/volume] in Ser um or PlasmaOrdered By: Amaya Nam on 03-04-2023 Protein [Mass/Vol] 6.8 g/dL 6.4-8.9 [facility] Serum or plasma albumin/glob ulin mass ratioOrdered By: Amaya Nam on 03-04-2023 Albumin/Globulin [Mass ratio] 1.6 {ratio} [facility] Serum or plasma high density lipoprotein (HDL) cholesterol measurementOrdered By: Amaya Nam on 03-04-2023 Cholesterol in HDL [Mass/Vol] 66 mg/dL 23-92 [facility] Comment on above: HDL CHOL ATP-III CLA SSIFICATION Cardiovascular RiskHDL > or equal to 60 mg/dL LOWHDL < 40 mg/dL HIGH Serum or plasma non-glucuron idated bilirubin measurement (mass/volume)Ordered By: Amaya Nam on 03-04-2023 Bilirubin.indirect [Mass/Vol] 0.3 mg/dL [facility] Serum or plasma total choles terol/high density lipoprotein (HDL) cholesterol mass ratOrdered By: Amaya Nam on 03-04-2023 Cholesterol.total/Chol esterol in HDL [Mass ratio] 2.2 {ratio} <5.0 [facility] Triglyceride [Mass/volume] i n Serum or PlasmaOrdered By: Amaya Nam on 03-04-2023 Triglyceride [Mass/Vol] 65 mg/dL 0-149 [facility] Comment on above: TRIG ATP III CLASSIF ICATIONTRIG less than 150 mg/dL NormalTRIG 150-199 mg/dL Borderline highTRIG 200-500 mg/dL High TRIG greater than 500 mg/dL Very highStandard traceable to the Center for Disease Conrtrol and Prevention (CDC) test method. MM screening mammo BI w/CADo n 01-23-2023 MM screening mammo BI w/CAD [facility] [address] [place] [address] [place] [id number] Mammography Report Signed Patient: Erin Cisneros MR#: [id number] 59 : 1965 Acct:[id number] Age/Sex: 57 / F ADM Date: 01/08/23 Loc: [place] Room: Type: [facility] Attending Dr: Amaya Nam DO Copies to: Amaya Nam DO Ordering Provider: Amaya Nam DO Date of Service: 01/08/23 MM/MM screening mammo BI w/CAD: Breast cancer screening CLINICAL DATA: Screening for malignancy. SCREENING MAMMOGRAM - FULL FIELD DIGITAL WITH TOMOSYNTHESIS AND CAD COMPARISON:Outside mammograms dating back to 2017. Tomosynthesis craniocaudal and mediolateral oblique views of both breasts were obtained using low- dose digital technique. This examination was reviewed with the aid of CAD. The breast parenchyma is heterogeneously dense. There are no dominant masses, typically malignant calcifications or architectural distortion. There has been no significant interval change. MM/MM screening mammo BI w/CAD IMPRESSION: NO MAMMOGRAPHIC EVIDENCE OF MALIGNANCY. ROUTINE FOLLOW-UP IS RECOMMENDED IN ONE YEAR. RESULT CODE: 1 Negative DENSITY CODE: 3 (approximately 51-75% glandular) FOLLOW UP: 1YR The false-negative rate of mammography is approximately 10-percent. Management of a palpable abnormality must be based on clinical grounds. Patient was entered into a reminder system with a target due date for the next mammogram. Impression dictated by: Alexandre Levy Jr., D.ORosa01/23/2023 3:25 PM Dictation Location: [facility] Transcribed By: OBI 01/23/23 1525 Dictated By: Alexandre Levy Jr, DO 01/23/23 1521 Signed By: 01/23/23 1525 Normal [facility] US aorta (aaa) screeningon 0 01-02-2023 US aorta (aaa) screening [facility] [address] [place] [address] [place] [address] Ultrasound Report Signed Patient: Erin Cisneros MR#: [id number] 59 : 1965 Acct:[id number] Age/Sex: 57 / F ADM Date: 01/02/23 Loc: Room: Type: [facility] Attending Dr: Amaya Nam DO Ordering Provider: Amaya Nam DO Date of Service: 01/02/23 US/US aorta (aaa) screening: Family history of aortic aneurysm Copies to: Amaya Nam DO Ultrasound of the Abdominal Aorta HISTORY: Abdominal aortic aneurysm screening. Family history of abdominal aortic aneurysm. COMPARISON: None The proximal measurement of the abdominal aorta is 1.9 x 2.3 cm. The mid measurement is 1.5 x 1.7 cm. The distal measurement is 1.5 x 1.4 cm. The RIGHT iliac artery measures 0.9 x 0.8 cm. The LEFT iliac artery measures 0.8 x 0.9 cm. No dissection identified. No periaortic abnormality identified. US/US aorta (aaa) screening IMPRESSION: No abdominal aortic aneurysm. Impression dictated by: Charan Vargas M.D.01/02/2023 2:44 PM Dictation Location: [place] [address] Tech: Rosalva Leyva Transcribed By: [facility] 01/02/23 1444 Dictated By: Charan Vargas DO 01/02/23 1439 Signed By: 01/02/23 1444 Normal [facility] Cholesterol [Mass/volume] in Serum or PlasmaOrdered By: Amaya Nam on 12-29-2022 Cholesterol [Mass/Vol] 221 mg/dL 140-200 [facility] Comment on above: Chol less than 200 m g/dl low riskChol 201-239 mg/dl borderline riskChol 240 mg/dl and greater high risk Cholesterol in LDL Calc [Mas s/Vol]Ordered By: Amaya Nam on 12-29-2022 Cholesterol in LDL [Mass/Vol] 134 mg/dL 0-100 [facility] Comment on above: LDL ATP III CLASSIFI CATIONLDL less than 100 mg/dL OptimalLDL 100-129 mg/dL Near or above optimalLDL 130-159 mg/dL Borderline highLDL 160-189 mg/dL HighLDL greater than 189 mg/dL Very high Cholesterol in VLDL Calc [Ma ss/Vol]Ordered By: Amaya Nam on 12-29-2022 Cholesterol in VLDL [Mass/Vol] 18 mg/dL [facility] Lipid Panelon 12-29-2022 Cholesterol [Mass/Vol] 221 mg/dL High 140-200 [facility] Comment on above: Order Comment: PT FA STED 12 HOURS Reason for Exam Generalized anxiety disorder;Preventative health care;Periph Result Comment: Chol less than 200 mg/dl low risk Chol 201-239 mg/dl borderline risk Chol 240 mg/dl and greater high risk Performed By: #### V [id number], TSH3 wRFLX, LIPID, B12 ####[facility] [id number] [place] [id number] [facility] Cholesterol in HDL [Mass/Vol] 69 mg/dL Normal 23-92 [facility] Comment on above: Order Comment: PT FA STED 12 HOURS Reason for Exam Generalized anxiety disorder;Preventative health care;Periph Result Comment: HDL CHOL ATP-III CLASSIFICATION Cardiovascular Risk HDL > or equal to 60 mg/dL LOW HDL < 40 mg/dL HIGH Performed By: #### V [id number], TSH3 wRFLX, LIPID, B12 ####[facility] [address] [place] [address] [facility] Cholesterol.total/Chol esterol in HDL [Mass ratio] 3.2 {ratio} Normal <5.0 [facility] Comment on above: Order Comment: PT FA STED 12 HOURS Reason for Exam Generalized anxiety disorder;Preventative health care;Periph Performed By: #### V [id number], TSH3 wRFLX, LIPID, B12 ####[facility] [address] [place] [address] [facility] LDL Cholesterol,Calculated 134 mg/dL High 0-100 [facility] Comment on above: Order Comment: PT FA STED 12 HOURS Reason for Exam Generalized anxiety disorder;Preventative health care;Periph Result Comment: LDL ATP III CLASSIFICATION LDL less than 100 mg/dL Optimal LDL 100-129 mg/dL Near or above optimal LDL 130-159 mg/dL Borderline high LDL 160-189 mg/dL High LDL greater than 189 mg/dL Very high Performed By: #### V [id number], TSH3 wRFLX, LIPID, B12 ####[facility] [address] Triglyceride w/Reflex 92 mg/dL Normal 0-149 [facility] Comment on above: Order Comment: PT FA STED 12 HOURS Reason for Exam Generalized anxiety disorder;Preventative health care;Periph Result Comment: TRIG ATP III CLASSIFICATION TRIG less than 150 mg/dL Normal TRIG 150-199 mg/dL Borderline high TRIG 200-500 mg/dL High TRIG greater than 500 mg/dL Very high Standard traceable to the Center for Disease Conrtrol and Prevention (CDC) test method. Performed By: #### V [id number], TSH3 wRFLX, LIPID, B12 ####[facility] VLDL CHOLESTEROL 18 mg/dL Normal [facility] Comment on above: Order Comment: PT FA STED 12 HOURS Reason for Exam Generalized anxiety disorder;Preventative health care;Periph Performed By: #### V [id number], TSH3 wRFLX, LIPID, B12 ####[place] [address] Serum or plasma high density lipoprotein (HDL) cholesterol measurementOrdered By: Amaya Nam on 12-29-2022 Cholesterol in HDL [Mass/Vol] 69 mg/dL 23-92 [facility] Comment on above: HDL CHOL ATP-III CLA SSIFICATION Cardiovascular RiskHDL > or equal to 60 mg/dL LOWHDL < 40 mg/dL HIGH Serum or plasma total choles terol/high density lipoprotein (HDL) cholesterol mass ratOrdered By: Amaya Nam on 12-29-2022 Cholesterol.total/Chol esterol in HDL [Mass ratio] 3.2 {ratio} <5.0 [facility] Thyroid Stim Hormone w/Rflxo n 12-29-2022 Thyroid Stim Hormone w/Rflx 1.95 u[iU]/mL Normal 0.45-5.33 [facility] Comment on above: Order Comment: PT FA STED 12 HOURS Reason for Exam Generalized anxiety disorder;Preventative health care;Periph Performed By: #### V [id number], TSH3 wRFLX, LIPID, B12 ####[facility] [place] [address] [facility] Thyrotropin [Units/volume] i n Serum or PlasmaOrdered By: Amaya Nam on 12-29-2022 TSH Qn 1.95 m[IU]/L 0.45-5.33 [facility] Triglyceride [Mass/volume] i n Serum or PlasmaOrdered By: Amaya Nam on 12-29-2022 Triglyceride [Mass/Vol] 92 mg/dL 0-149 [facility] Comment on above: TRIG ATP III CLASSIF ICATIONTRIG less than 150 mg/dL NormalTRIG 150-199 mg/dL Borderline highTRIG 200-500 mg/dL High TRIG greater than 500 mg/dL Very highStandard traceable to the Center for Disease Conrtrol and Prevention (CDC) test method. Vitamin B12on 12-29-2022 Cobalamin (Vitamin B12) [Mass/Vol] 318 pg/mL Normal 180-914 [facility] Comment on above: Order Comment: PT FA STED 12 HOURS Reason for Exam Generalized anxiety disorder;Preventative health care;Periph Performed By: #### V [id number], TSH3 wRFLX, LIPID, B12 ####[place] [address] [place] [address] [facility] Vitamin B12 ser/plasOrdered By: Amaya Nam on 12-29-2022 Cobalamin (Vitamin B12) [Mass/Vol] 318 pg/mL 180-914 [facility] Vitamin D 25 Hydroxy Totalon 12-29-2022 Vitamin D 25 Hydroxy Total 29.6 ng/mL Low 30-100 [facility] Comment on above: Order Comment: PT FA STED 12 HOURS Reason for Exam Generalized anxiety disorder;Preventative health care;Periph Result Comment: CELINE MIN D STATUS 25(OH)VITAMIN D RANGE (ng/mL) Deficient <20 Insufficient 20 to <30 Sufficient 30 to 100 Reference: Mar HUDSON,Andrew MARKS, Ashu BEGUM, et al. Evaluation,treatment, and prevention of vitamin D deficiency; an Endocrine Society clinical practice guideline. JCEM. 2010; 96(7):1911-30. PERFORMED BY: [facility] [address] PATHOLOGIST DANCE HALL HOSTESS CHEYENNE MCCOY M.D. Performed By: #### V [id number], TSH3 wRFLX, LIPID, B12 ####[facility] Hem[address] Vitamin D+Metabolites [Mass/ volume] in Serum or PlasmaOrdered By: Amaya Nam on 12-29-2022 Vitamin D+Metabolites [Mass/Vol] 29.6 ng/mL 30-100 [facility] Comment on above: VITAMIN D STATUS 25( [place])VITAMIN D RANGE (ng/mL) Deficient <20 Insufficient 20 to <30Sufficient 30 to 100Reference: Mar MF,Andrew MARKS, Ashu BEGUM, et al. Evaluation,treatment, and prevention of vitamin D deficiency; an Endocrine Society clinical practice guideline. JCEM. 2010; 96(7):1911-30. URINE DRUG SCREEN (IN-HOUSE) on 12-17-2022 URINE DRUG SCREEN (IN-HOUSE) [facility] Other Urine Cultureon 12-17-2022 Bacteria identified Cx Nom (U) Reason for Exam Dysuria Urine 20,000 colonies/ml mixed bacterial skin contaminants 2 Days PERFORMED BY: [place] [address] PATHOLOGIST DANCE H[employer] HOSTESS CHEYENNE MCCOY M.D. Normal [facility] Comment on above: Performed By: #### C UU #### [facility] [address] Urine culture routineOrdered By: Amaya Nam on 12-17-2022 Bacteria identified Cx Nom (U) 2 Days [facility] Activated partial thrombopla stin time (aPTT) in platelet poor plasma by coagulation aOrdered By: Stefan Alford on 12-12-2022 aPTT Coag (PPP) [Time] 34.7 s 25.1-36.5 [facility] B-Type Natriuretic Peptideon 12-12-2022 Natriuretic peptide B (Bld) [Mass/Vol] 18.0 pg/mL Normal 5-100 [facility] Comment on above: Result Comment: PERF ORMED BY: [facility] [address] [place] [address] PATHOLOGIST DANCE H[employer] HOSTESS CHEYENNE MCCOY M.D. Performed By: #### H S TROP, PTT, BNP, CBC, PT, BMP ####[address] Basic Metabolic Panelon 05-2 Anion gap [Moles/Vol] 8.5 mmol/L Normal 6.0-15.0 [facility] Comment on above: Performed By: #### H S TROP, PTT, BNP, CBC, PT, BMP ####[address] Calcium [Mass/Vol] 8.9 mg/dL Normal 8.6-10.3 [facility] Comment on above: Performed By: #### H S TROP, PTT, BNP, CBC, PT, BMP ####[place] [id number] [facility] Chloride [Moles/Vol] 104 mmol/L Normal 98-107 [facility] Comment on above: Performed By: #### H S TROP, PTT, BNP, CBC, PT, BMP ####[place] [id number] [facility] CO2 [Moles/Vol] 30.4 mmol/L Normal 21.0-31.0 [facility] Comment on above: Performed By: #### H S TROP, PTT, BNP, CBC, PT, BMP ####[place] [id number] [facility] Creatinine [Mass/Vol] 0.77 mg/dL Normal 0.60-1.20 [facility] Comment on above: Performed By: #### H S TROP, PTT, BNP, CBC, PT, BMP ####[place] [id number] [facility] Creatinine Clr Calc Pharmacy 76.37 Normal [facility] Comment on above: Result Comment: PERF ORMED BY: [facility] [address] [place] [address] PATHOLOGIST DANCE H[employer] HOSTESS CHEYENNE MCCOY M.D. Performed By: #### H S TROP, PTT, BNP, CBC, PT, BMP ####[place] [address] [place] [id number] [facility] GFR/1.73 sq M.predicted MDRD (S/P/Bld) [Vol rate/Area] mL/min/{1.73_m2} [facility] Comment on above: Performed By: #### H S TROP, PTT, BNP, CBC, PT, BMP ####[place] [address] [address] Glucose [Mass/Vol] 85 mg/dL Normal 70-100 [facility] Comment on above: Result Comment: [facility] Glucose Reference Range is dependent on time and content of last meal. Glucose of more than 200 mg/dL in a nonstressed, ambulatory subject supports the diagnosis of Diabetes Mellitus. ADA recommended reference range Performed By: #### H S TROP, PTT, BNP, CBC, PT, BMP ####[place] [address] [place] [id number] [facility] Potassium [Moles/Vol] 3.9 mmol/L Normal 3.5-5.1 [facility] Comment on above: Performed By: #### H S TROP, PTT, BNP, CBC, PT, BMP ####[place] [address] [place] [id number] [facility] Sodium [Moles/Vol] 139 mmol/L Normal 136-145 [facility] Comment on above: Performed By: #### H S TROP, PTT, BNP, CBC, PT, BMP ####[place] [id number] [facility] Urea nitrogen [Mass/Vol] 12 mg/dL Normal 7-25 [facility] Comment on above: Performed By: #### H S TROP, PTT, BNP, CBC, PT, BMP ####[place] [address] [place] [id number] [facility] Basophils Auto (Bld) [#/Vol] Ordered By: Stefan Alford on 12-12-2022 Basophils (Bld) [#/Vol] 0.0 10*3/uL 0.0-0.2 [facility] Basophils/100 WBC Auto (Bld) Ordered By: Stefan Alford on 12-12-2022 Basophils/100 WBC (Bld) 1.0 % . [facility] Calcium [Mass/volume] in Ser um or PlasmaOrdered By: Stefan Alford on 12-12-2022 Calcium [Mass/Vol] 8.9 mg/dL 8.6-10.3 [facility] Carbon dioxide, total [Moles /volume] in Serum or PlasmaOrdered By: Stefan Alford on 12-12-2022 CO2 [Moles/Vol] 30.4 mmol/L 21.0-31.0 [facility] Chloride [Moles/volume] in S thomas or PlasmaOrdered By: Stefan Alford on 12-12-2022 Chloride [Moles/Vol] 104 mmol/L 98-107 [facility] Complete Blood Count Auto Di ffon 12-12-2022 Basophils (Bld) [#/Vol] 0.0 10*3/uL Normal 0.0-0.2 [facility] Comment on above: Result Comment: PERF ORMED BY: [facility] [address] [place] [id number] PATHOLOGIST DANCE H[employer] HOSTESS CHEYENNE MCCOY M.D. Performed By: #### H S TROP, PTT, BNP, CBC, PT, BMP ####[address] Basophils/100 WBC (Bld) 1.0 % Normal . [facility] Comment on above: Performed By: #### H S TROP, PTT, BNP, CBC, PT, BMP ####[address] Eosinophils (Bld) [#/Vol] 0.2 10*3/uL Normal 0.0-0.45 [facility] Comment on above: Performed By: #### H S TROP, PTT, BNP, CBC, PT, BMP ####[place] [address] [place] Eosinophils/100 WBC (Bld) 4.3 % Normal . [facility] Comment on above: Performed By: #### H S TROP, PTT, BNP, CBC, PT, BMP ####[address] Erythrocyte distribution width (RBC) [Ratio] 13.4 % Normal 11.9-15.3 [facility] Comment on above: Performed By: #### H S TROP, PTT, BNP, CBC, PT, BMP ####[address] Hematocrit (Bld) [Volume fraction] 39.7 % Normal 34.0-46.4 [facility] Comment on above: Performed By: #### H S TROP, PTT, BNP, CBC, PT, BMP ####[address] Hemoglobin (Bld) [Mass/Vol] 13.0 g/dL Normal 11.8-15.4 [facility] Comment on above: Performed By: #### H S TROP, PTT, BNP, CBC, PT, BMP ####[address] Lymphocytes (Bld) [#/Vol] 1.3 10*3/uL Normal 1.00-4.8 [facility] Comment on above: Performed By: #### H S TROP, PTT, BNP, CBC, PT, BMP ####[address] Lymphocytes/100 WBC (Bld) 32.2 % Normal . [facility] Comment on above: Performed By: #### H S TROP, PTT, BNP, CBC, PT, BMP ####[address] MCH (RBC) [Entitic mass] 28.5 pg Normal 24.7-34.3 [facility] Comment on above: Performed By: #### H S TROP, PTT, BNP, CBC, PT, BMP ####[address] MCV (RBC) [Entitic vol] 86.7 fL Normal 80-100 [facility] Comment on above: Performed By: #### H S TROP, PTT, BNP, CBC, PT, BMP ####[address] Mean Corpuscular HGB Conc 32.9 g/dL Normal 32.0-35.0 [facility] Comment on above: Performed By: #### H S TROP, PTT, BNP, CBC, PT, BMP ####[address] Monocytes (Bld) [#/Vol] 0.2 10*3/uL Normal 0.0-0.8 [facility] Comment on above: Performed By: #### H S TROP, PTT, BNP, CBC, PT, BMP ####[address] Monocytes/100 WBC (Bld) 17.39 % Normal 0.00-20.00 [facility] Comment on above: Performed By: #### H S TROP, PTT, BNP, CBC, PT, BMP ####[address] Monocytes/100 WBC (Bld) 5.9 % Normal . [facility] Comment on above: Performed By: #### H S TROP, PTT, BNP, CBC, PT, BMP ####[address] Neutrophils (Bld) [#/Vol] 2.3 10*3/uL Normal 1.8-7.7 [facility] Comment on above: Performed By: #### H S TROP, PTT, BNP, CBC, PT, BMP ####[address] Neutrophils/100 WBC (Bld) 56.6 % Normal . [facility] Comment on above: Performed By: #### H S TROP, PTT, BNP, CBC, PT, BMP ####[address] NRBC% 0.1 /100{WBC} Normal 0-0.5 [facility] Comment on above: Performed By: #### H S TROP, PTT, BNP, CBC, PT, BMP ####[address] Platelet mean volume (Bld) [Entitic vol] 8.2 fL Normal 6.3-10.7 [facility] Comment on above: Performed By: #### H S TROP, PTT, BNP, CBC, PT, BMP ####[address] Platelets (Bld) [#/Vol] 180 10*3/uL Normal 150-450 [facility] Comment on above: Performed By: #### H S TROP, PTT, BNP, CBC, PT, BMP ####[address] RBC (Bld) [#/Vol] 4.58 10*6/uL Normal 3.60-5.00 [facility] Comment on above: Performed By: #### H S TROP, PTT, BNP, CBC, PT, BMP ####[address] WBC (Bld) [#/Vol] 4.1 10*3/uL Normal 3.8-11.6 [facility] Comment on above: Performed By: #### H S TROP, PTT, BNP, CBC, PT, BMP ####[address] Creatinine [Mass/volume] in Serum or PlasmaOrdered By: Stefan Alford on 12-12-2022 Creatinine [Mass/Vol] 0.77 mg/dL 0.60-1.20 [facility] ECG 12 lead ECGon 12-12-2022 ECG 12 lead ECG [facility] [address] [place] [address] [place] [address] Electrocardiograph Report Signed Patient: Erin Cisneros MR#: [id number] 59 : 1965 Acct:[id number] Age/Sex: 57 / F ADM Date: 12/12/22 Loc: ER Room: Type: [facility] ER Attending Dr: Ordering Provider: Stefan Alford DO Date of Service: 12/12/22 ECG/ECG 12 lead ECG: Chest Pain Copies to: Test Reason : Blood Pressure : 114/068 mmHG Vent. Rate : 083 BPM Atrial Rate : 083 BPM P-R Int : 130 ms QRS Dur : 084 ms QT Int : 356 ms P-R-T Axes : 060 102 040 degrees QTc Int : 418 ms Normal sinus rhythm Rightward axis Confirmed by Stefan Alford DO ([id number]) on 12/12/2022 6:46:40 PM Referred By: Electronically Signed By:Stefan Alford DO Transcribed By: MUS Signed By Stefan Alford DO 184 Normal [facility] Eosinophils Auto (Bld) [#/Vo l]Ordered By: Stefan Alford on 12-12-2022 Eosinophils (Bld) [#/Vol] 0.2 10*3/uL 0.0-0.45 [facility] Eosinophils/100 WBC Auto (Bl d)Ordered By: Stefan Alford on 12-12-2022 Eosinophils/100 WBC (Bld) 4.3 % . [facility] Erythrocyte distribution wid th Auto (RBC) [Ratio]Ordered By: Stefan Alford on 12-12-2022 Erythrocyte distribution width (RBC) [Ratio] 13.4 % 11.9-15.3 [facility] Glucose [Mass/volume] in Ser um or PlasmaOrdered By: Stefan Alford on 12-12-2022 Glucose [Mass/Vol] 85 mg/dL 70-100 [facility] Comment on above: ADA recommended refe rence rangeRandom Glucose Reference Range is dependent on time and content of last meal. Glucose of more than 200 mg/dL in a nonstressed, ambulatory subject supports the diagnosis of Diabetes Mellitus. Hematocrit Auto (Bld) [Volum e fraction]Ordered By: Stefan Alford on 12-12-2022 Hematocrit (Bld) [Volume fraction] 39.7 % 34.0-46.4 [facility] Hemoglobin [Mass/volume] in BloodOrdered By: Stefan Alford on 12-12-2022 Hemoglobin (Bld) [Mass/Vol] 13.0 g/dL 11.8-15.4 [facility] Laboratory - CoagulationOrde red By: Stefan Alford on 12-12-2022 PT Coag (PPP) [Time] 12.2 s 9.0-12.9 [facility] Leukocytes [#/volume] correc kaz for nucleated erythrocytes in Blood by Automated counOrdered By: Stefan Alford on 12-12-2022 WBC corrected for nucl RBC Auto (Bld) [#/Vol] 4.1 10*3/uL 3.8-11.6 [facility] Lymphocytes Auto (Bld) [#/Vo l]Ordered By: Stefan Alford on 12-12-2022 Lymphocytes (Bld) [#/Vol] 1.3 10*3/uL 1.00-4.8 [facility] Lymphocytes/100 WBC Auto (Bl d)Ordered By: Stefan Alford on 12-12-2022 Lymphocytes/100 WBC (Bld) 32.2 % . [facility] MCH Auto (RBC) [Entitic mass ]Ordered By: Stefan Alford on 12-12-2022 MCH (RBC) [Entitic mass] 28.5 pg 24.7-34.3 [facility] MCHC Auto (RBC) [Mass/Vol]Or dered By: Stefan Alford on 12-12-2022 MCHC (RBC) [Mass/Vol] 32.9 g/dL 32.0-35.0 [facility] MCV Auto (RBC) [Entitic vol] Ordered By: Stefan Alford on 12-12-2022 MCV (RBC) [Entitic vol] 86.7 fL 80-100 [facility] Monocyte distribution width [Entitic volume] in Blood by AutomatedOrdered By: Stefan Alford on 12-12-2022 Monocyte distribution width Auto (Bld) [Entitic vol] 17.39 % 0.00-20.00 [facility] Monocytes Auto (Bld) [#/Vol] Ordered By: Stefan Alford on 12-12-2022 Monocytes (Bld) [#/Vol] 0.2 10*3/uL 0.0-0.8 [facility] Monocytes/100 WBC Auto (Bld) Ordered By: Stefan Alford on 12-12-2022 Monocytes/100 WBC (Bld) 5.9 % . [facility] Natriuretic peptide B [Mass/ Vol]Ordered By: Stefan Alford on 12-12-2022 Natriuretic peptide B (Bld) [Mass/Vol] 18.0 pg/mL 5-100 [facility] Neutrophils Auto (Bld) [#/Vo l]Ordered By: Stefan Alford on 12-12-2022 Neutrophils (Bld) [#/Vol] 2.3 10*3/uL 1.8-7.7 [facility] Neutrophils/100 WBC Auto (Bl d)Ordered By: Stefan Alford on 12-12-2022 Neutrophils/100 WBC (Bld) 56.6 % . [facility] [facility] No Panel InformationOrdered By: Stefan Alford on 12-12-2022 Estimated GFR (CKD-EPI) > 60.0 mL/Min [facility] Creatinine Clearance (Chem 76.37 [facility] Nucleated erythrocytes [Pres ence] in Blood by Automated countOrdered By: Stefan Alford on 12-12-2022 Nucleated RBC Auto Ql (Bld) 0.1 /100{WBC} 0-0.5 [facility] Partial Thromboplastin Timeo n 12-12-2022 aPTT Coag (Bld) [Time] 34.7 s Normal 25.1-36.5 [facility] Comment on above: Result Comment: PERF ORMED BY: [facility] [address] [place] [id number] PATHOLOGIST DANCE HALL HOSTESS CHEYENNE MCCOY M.D. Performed By: #### H S TROP, PTT, BNP, CBC, PT, BMP ####[facility] [id number] Platelet mean volume Auto (B ld) [Entitic vol]Ordered By: Stefan Alford on 12-12-2022 Platelet mean volume (Bld) [Entitic vol] 8.2 fL 6.3-10.7 [facility] Platelet poor plasma interna tional normalized ratio (INR) by coagulation assay (relatOrdered By: Stefan Alford on 12-12-2022 INR Coag (PPP) [Relative time] 1.0 {INR} [facility] Comment on above: INR Therapeutic Rang e A) Pre- and Peroperative OAT started two weeks before surgery. NOT HIP SURGERY: 1.5 - 2.5 HIP SURGERY: 2 - 3B) Primary and secondary prevention of venous THROMBOSIS: 2 - 3C) Active venous thrombosis, pulmonary embolismand prevention of recurrent venous thrombosis: 2 - 3D) Prevention of arterial thromboembolismincluding patients with mechanical heart valves: 3 - 4.5 Platelets Auto (Bld) [#/Vol] Ordered By: Stefan Alford on 12-12-2022 Platelets (Bld) [#/Vol] 180 10*3/uL 150-450 [facility] Potassium [Moles/volume] in Serum or PlasmaOrdered By: Stefan Alford on 12-12-2022 Potassium [Moles/Vol] 3.9 mmol/L 3.5-5.1 [facility] Prothrombin Time INRon 12-12 INR Coag (PPP) [Relative time] 1.0 {INR} Normal [facility] Comment on above: Result Comment: INR Therapeutic Range A) Pre- and Peroperative OAT started two weeks before surgery. NOT HIP SURGERY: 1.5 - 2.5 HIP SURGERY: 2 - 3 B) Primary and secondary prevention of venous THROMBOSIS: 2 - 3 C) Active venous thrombosis, pulmonary embolism and prevention of recurrent venous thrombosis: 2 - 3 D) Prevention of arterial thromboembolism including patients with mechanical heart valves: 3 - 4.5 Performed By: #### H S TROP, PTT, BNP, CBC, PT, BMP ####[facility] [id number] [place] [id number] [facility] PT Coag (PPP) [Time] 12.2 s Normal 9.0-12.9 [facility] Comment on above: Performed By: #### H S TROP, PTT, BNP, CBC, PT, BMP ####[facility] [id number] [place] [id number] [facility] RBC Auto (Bld) [#/Vol]Ordere d By: Stefan Alford on 12-12-2022 RBC (Bld) [#/Vol] 4.58 10*6/uL 3.60-5.00 [facility] Serum or plasma anion gap de terminationOrdered By: Stefan Alford on 12-12-2022 Anion gap [Moles/Vol] 8.5 mmol/L 6.0-15.0 [facility] Sodium [Moles/volume] in Ser um or PlasmaOrdered By: Stefan Alford on 12-12-2022 Sodium [Moles/Vol] 139 mmol/L 136-145 [facility] Troponin I High Sensitivityo n 12-12-2022 Troponin I High Sensitivity < 2.3 Normal 0.0-15.0 [facility] Comment on above: Result Comment: PERF ORMED BY: [place] [address] PATHOLOGIST DANCE HALL HOSTESS CHEYENNE MCCOY M.D. Performed By: #### H S TROP #### [facility] [address] [place] [address] Troponin I High Sensitivity < 2.3 Normal 0.0-15.0 [facility] Comment on above: Result Comment: PERF ORMED BY: [place] [address] PATHOLOGIST DANCE HALL HOSTESS CHEYENNE MCCOY M.D. Performed By: #### H S TROP, PTT, BNP, CBC, PT, BMP ####[facility] [id number] [address] Troponin I.cardiac [Mass/vol ume] in Serum or Plasma by Detection limit <= 0.01 ng/Ordered By: Stefan Alford on 12-12-2022 Troponin I.cardiac DL <= 0.01 ng/mL [Mass/Vol] < 2.3 pg/mL 0.0-15.0 [facility] Urea nitrogen [Mass/volume] in Serum or PlasmaOrdered By: Stefan Alford on 12-12-2022 Urea nitrogen [Mass/Vol] 12 mg/dL 7-25 [facility] WBC Auto (Bld) [#/Vol]Ordere d By: Stefan Alford on 12-12-2022 WBC (Bld) [#/Vol] 4.1 10*3/uL 3.8-11.6 [facility] XR chest 1V portableon 12-12 XR chest 1V portable [facility] [place] [address] [place] [id number] XRay Report Signed Patient: Erin Cisneros MR#: [id number] 59 : 1965 Acct:[id number] Age/Sex: 57 / F ADM Date: 12/12/22 Loc: ER Room: Type: [facility] ER Attending Dr: Copies to: Stefan Alford DO Ordering Provider: Stefan Alford DO Date of Service: 12/12/22 XR/XR chest 1V portable: Chest Pain PORTABLE AP ERECT CHEST 1106 hours CLINICAL HISTORY: Left-sided chest and arm pain. COMPARISON: None The heart is within normal limits. There is no vascular congestion. The lungs, as visualized, are clear. There is no effusion or pneumothorax. The osseous structures are intact. There is subtle scoliotic curvature and minimal endplate spurring. XR/XR chest 1V portable IMPRESSION: NO ACUTE FINDINGS Impression dictated by: Patito Curiel M.D.12/12/2022 11:34 AM Dictation Location: [place] [address] Transcribed By: [facility] 12/12/22 1134 Dictated By: Patito Curiel MD 12/12/22 1133 Signed By: 12/12/22 1134 Normal [facility] Vital Signs Date Time Vital Sign Value Performing Clinician Facility 03-20-2023 10:30-0400 Body height 167.64 cm Amaya Nam Other [facility] Other 03-20-2023 10:30-0400 Body mass index (BMI) [Ratio] 23.87 kg/m2 Amaya Nam Other [facility] Other 03-20-2023 10:30-0400 Body weight 67.09 kg Amayaayana Nam Other [facility] Other 03-20-2023 10:30-0400 Diastolic blood pressure 70 mm[Hg] Amaya Nam Other [facility] Other 03-20-2023 10:30-0400 Respiratory rate 18 /min Amaya Nam Other [facility] Other 03-20-2023 10:30-0400 SaO2% (BldA) [Mass fraction] 98 % Amayamarin Nam Other [facility] Other 03-20-2023 10:30-0400 Systolic blood pressure 108 mm[Hg] Amaya Cyril Other [facility] Other 12-17-2022 09:00-0400 Body height 167.64 cm Amayaayana Nam Other [facility] Other 12-17-2022 09:00-0400 Body mass index (BMI) [Ratio] 24.53 kg/m2 Amayamarin Nam Other [facility] Other 12-17-2022 09:00-0400 Body weight 68.95 kg Amayaayana Nam Other [facility] Other 12-17-2022 09:00-0400 Diastolic blood pressure 62 mm[Hg] Amaya Nam Other [facility] Other 12-17-2022 09:00-0400 Respiratory rate 18 /min Amayaayana Nam Other [facility] Other 12-17-2022 09:00-0400 SaO2% (BldA) [Mass fraction] 96 % Amaya Nam Other [facility] Other 12-17-2022 09:00-0400 Systolic blood pressure 98 mm[Hg] Amaya Nam Other [facility] Other 12-12-2022 15:21-0400 Heart rate 56 /min DO [facility] 12-12-2022 15:20-0400 Diastolic blood pressure 65 mm[Hg] DO [facility] 12-12-2022 15:20-0400 Respiratory rate 16 /min DO [facility] 12-12-2022 15:20-0400 SaO2% (BldA) [Mass fraction] 100 % DO [facility] 12-12-2022 15:20-0400 Systolic blood pressure 112 mm[Hg] DO [facility] 12-12-2022 10:33-0400 Body height 167.64 cm DO [facility] 12-12-2022 10:33-0400 Body temperature 98.7 [degF] DO [facility] 12-12-2022 10:33-0400 Body weight 69.15 kg DO [facility] Encounters Encounter Date Encounter Type Care Provider Facility Start: 08-12-2023 End: 08-12-2023 ambulatory NON STAFF Facility:[facility] Start: 08-12-2023 End: 08-12-2023 ambulatory FRANCISCA May Work Phone: [facility] Work Phone: Start: 08-12-2023 End: 08-12-2023 Departed Referred FRANCISCA May Work Phone: [facility] Start: 07-07-2023 End: 07-07-2023 ambulatory Amaya Nam Other [facility] Other Start: 07-07-2023 Telephone encounter Amaya Nam [facility] [place] Start: 06-04-2023 End: 06-04-2023 ambulatory Amaya Nam Other [facility] Other Start: 06-04-2023 Telephone encounter Amaya Nam [facility] [place] Start: 05-29-2023 End: 05-29-2023 ambulatory Amaya Nam Other [facility] Other Start: 05-29-2023 Telephone encounter Amaya Nam [facility] Start: 03-20-2023 End: 03-20-2023 ambulatory Amaya Nam Other [facility] Other Start: 03-20-2023 Office outpatient vi sit 25 minutes Amaya Nam [facility] [place] Start: 03-09-2023 End: 03-09-2023 ambulatory Amaya Nam Other [facility] Other Start: 03-09-2023 Encounter by compute r link Amaya Nam [facility] Start: 03-04-2023 Telephone encounter Amaya Nam [facility] [place] Start: 03-04-2023 End: 03-04-2023 ambulatory DO Stefan Alford [facility] Work Phone: Start: 03-04-2023 End: 03-04-2023 Patient encounter procedure DO Stefan Alford [facility] [place] Work Phone: Start: 02-24-2023 End: 02-24-2023 ambulatory Amaya Cyril Other [facility] Other Start: 02-24-2023 Telephone encounter Amaya Nam [facility] [place] Start: 01-26-2023 End: 01-26-2023 ambulatory Amayaayana Nam Other [facility] Other Start: 01-26-2023 Telephone encounter Amaya Nam [facility] [place] Start: 01-21-2023 End: 01-21-2023 ambulatory Amayaayana Nam Other [facility] Other Start: 01-21-2023 Encounter by [employer] Amaya Nam [facility] [place] Start: 01-15-2023 End: 01-15-2023 ambulatory Amayaayana Nam Other [facility] Other Start: 01-15-2023 Encounter by [employer] Amaya [facility] [place] Start: 01-10-2023 End: 01-10-2023 ambulatory Amayaayana Nam Other [facility] Other Start: 01-10-2023 Telephone encounter Amaya Nam [facility] [place] Start: 01-08-2023 End: 01-08-2023 ambulatory Amaya A Cyril Facility:[facility] Start: 01-08-2023 End: 01-08-2023 ambulatory DO Stefan Alford [facility] Work Phone: Start: 01-08-2023 End: 01-08-2023 Patient encounter procedure DO Stefan Alford [facility] Work Phone: Start: 01-03-2023 End: 01-03-2023 ambulatory Amaya Nam Other [facility] Other Start: 01-03-2023 Encounter by [employer] Amaya [facility] [place] Start: 01-02-2023 End: 01-02-2023 ambulatory Amaya Nam Facility:[facility] Start: 01-02-2023 End: 01-02-2023 ambulatory DO Stefan Alford [facility] Work Phone: Start: 01-02-2023 End: 01-02-2023 Patient encounter procedure DO Stefan Alford [facility] [place] Work Phone: Start: 01-01-2023 End: 01-01-2023 ambulatory Amaya Nam Other [facility] Other Start: 01-01-2023 Telephone encounter Amaya Nam [facility] [place] Start: 12-29-2022 End: 12-29-2022 ambulatory Amaya Nam Facility:[facility] Start: 12-29-2022 Encounter for genera l adult medical examination without abnormal findings Amaya Cuellar [facility] Start: 12-29-2022 End: 12-29-2022 ambulatory DO Stefan Alford [facility] Work Phone: Start: 12-29-2022 End: 12-29-2022 Patient encounter procedure DO Stefan Alford [facility] [place] Work Phone: Start: 12-26-2022 End: 12-26-2022 ambulatory DO Stefan Alford [facility] Work Phone: Start: 12-26-2022 End: 12-26-2022 Patient encounter procedure DO Stefan Alford [facility] [place] Work Phone: Start: 12-19-2022 End: 12-19-2022 ambulatory Amaya Nam Other [facility] Other Start: 12-19-2022 Telephone encounter Amaya Nam [facility] [place] Start: 12-18-2022 End: 12-18-2022 ambulatory Amaya Nam Other [facility] Other Start: 12-18-2022 [facility] [place] Start: 12-17-2022 Encounter for genera l adult medical examination without abnormal findings [facility] [place] Start: 12-17-2022 Office outpatient ne w 45 minutes [facility] [place] Start: 12-17-2022 End: 12-17-2022 ambulatory PHYSICIAN NO FAMILY Facility:[facility] Start: 12-17-2022 End: 12-17-2022 ambulatory DO Stefan Alford [facility] Other Start: 12-17-2022 End: 12-17-2022 Departed Referred DO Stefan Alford [facility] [place] Work Phone: Start: 12-12-2022 End: 12-12-2022 Emergency department patient visit PHYSICIAN NO FAMILY Facility:[facility] Start: 12-12-2022 End: 12-12-2022 Emergency department patient visit DO Stefan Alford [facility]gency Room Work Phone: Procedures Date Procedure Procedure Detail Performing Clinician Start: 01-08-2023 Screening mammograph y of bilateral breasts DO Stefan Alford Start: 01-02-2023 US scan of abdominal aorta DO Stefan Alford Start: 12-17-2022 Urine culture DO Barrington Alford Start: 12-12-2022 Plain chest X-ray DO Emanuel Alford Plan of Treatment Date Care Activity Detail Author Start: 01-08-2023 Screening mammograph y of bilateral breasts MM screening mammo BI w/CAD [facility] Start: 12-17-2022 Bacteria identified in Urine by Culture [facility] Lutropin [Units/volu me] in Serum or Plasma [facility] Patient Education Muscle and Bon e Pain (DC) [facility] Work Phone: Patient referral [facility] Work Phone: Immunizations Immunization Date Immunization Notes Care Provider Jazmin gaston 08-05-2020 COVID-19 Vaccine Pfi zer - Documentation Purposes Only Amayaayana Nam Other [facility] Other 07-15-2020 COVID-19 Vaccine Pfi zer - Documentation Purposes Only Amayaayana Nam Other [facility] Other 08-06-2017 pneumococcal polysaccharide vaccine, 23 valent Amayaayana Nam Other [facility] Other 08-06-2017 tetanus toxoid, redu nilson diphtheria toxoid, and acellular pertussis vaccine, adsorbed Amaya Nam Other [facility] Other Payers Date Payer Category Payer Unknown [id number] 2022 Medicaid [id number] 2022 Self-pay Unknown [place] [facility] [id number] Unknown [id number] Unknown [id number] .. [id number] Unknown [id number] Unknown [id number] Unknown [id number] Unknown [id number] Unknown [id number]. [id number] Social History Date Type Detail Facility Start: 12-12-2022 End: 12-12-2022 Tobacco smoking status NHIS Never smoked tobacco (finding) [facility] Start: 1965 Sex Assigned At Female F [facility] Sex Assigned At Sex Assigned At Bir th [facility] Other Evaluation note 05-29-2023 Note Date & Type Note Facility 05-29-2023 Evaluation note Encounter Date Diagnosis Assessment Notes May, Otalgia of right ear (ICD-10 - H92.01) [facility] Other Evaluation note 03-20-2023 Note Date & Type Note Facility 03-20-2023 Evaluation note Encounter Date Diagnosis Assessment Notes Mar, Generalized anxiety disorder (ICD-10 - F41.1) Will continue to work on weaning down off clonazepam Mar, Depression (ICD-10 - F32.9) Depression and there is underlying concern for ADD, she has upcoming appt with psychology however we discussed that we can trial Wellbutrin which may help with these symptoms. She has had side effect of itching with wellbutrin before but feels this may have been situational looking back. Mar, Peripheral neuropathy (ICD-10 - G62.9) Mar, Eustachian tube dysfunction, right (ICD-10 - H69.81) Advised can try 2 week course of decongestant such as Sudafed, if not improving would recommend referral to ENT for evaluation [facility] Other Evaluation note 01-03-2023 Note Date & Type Note Facility 01-03-2023 Evaluation note Encounter Date Diagnosis Assessment Notes Dec, Hyperlipidemia (ICD-10 - E78.5) [facility] Other Evaluation note 12-17-2022 Note Date & Type Note Facility 12-17-2022 Evaluation note Encounter Date Diagnosis Assessment Notes November, Generalized anxiety disorder (ICD-10 - F41.1) She uses clonazepam PRN, per patient uses typically 1/2 tablet up to daily PRN CSA/utox obtained today I have personally reviewed the [place]AR[place] report for this patient. I have considered the risks of abuse, dependence, addiction and diversion. I believe that it is clinically appropriate for this patient to be prescribed this medication based on documented diagnosis. Has not filled in [place], reviewed bottle from [place], last filled 06/2022 90 tablets with several remaining in bottle November, Breast cancer screening (ICD-10 - Z12.39) November, Preventative health care (ICD-10 - Z00.00) November, Peripheral neuropathy (ICD-10 - G62.9) Will check lab work with vitamin levels November, Colon cancer screening (ICD-10 - Z12.11) Due for colon cancer screening. 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) [facility] Other Evaluation note Note Date & Type Note Facility Evaluation note No assessment information [facility] Work Phone: Evaluation note Note Date & Type Note Facility Evaluation note No Information Exacter Other History general Narrative - Reported Note Date & Type Note Facility History general Narrative - Reported Type Medical History depression Medical History anxiety Surgical History left oopherctomy Surgical History appendectomy Surgical History uterine ablation Surgical History Essure BC placement Hospitalization History see above Hospitalization History loss of vision in left e ye [facility] Other Chief Complaint and Reason for Visit Chief Complaint left arm pain fuzzy feeling in cheek Dysuria Chief Complaint left arm pain fuzzy feeling in cheek R30.0 F41.1 Z00.00 G62.9 Chief Complaint left arm pain fuzzy feeling in cheek R30.0 F41.1 Z00.00 G62.9 F41.1 Z00.00 Chief Complaint left arm pain fuzzy feeling in cheek R30.0 F41.1 Z00.00 G62.9 F41.1 Z00.00 Z82.49 Chief Complaint left arm pain fuzzy feeling in cheek R30.0 F41.1 Z00.00 G62.9 F41.1 Z00.00 Z82.49 Z12.39 Chief Complaint left arm pain fuzzy feeling in cheek R30.0 F41.1 Z00.00 Z82.49 Z12.39 Hyperlipidemia Chief Complaint Hot flashes Major de pressive disorder, recurrent e Advance Directives No Advanced Directives Records Found Advance Directive Response Recorded Date/ Time Advance Directives No December 12 3 11:27am Advance Directive Response Recorded Date/ Time Advance Directives No December 12 3 10:27am Reason for Referral Reason skin lesion of face, concern for BCC vs SCC Diagnosis 1 Skin lesion of face (L98.9) Referral Organization [facility] [place] Referring Provider First Name Amaya Referring Provider Last Name [facility] Referring Provider Specialty Family [employer] Referred Organization [facility] Referred Address ,[place], [place],[address] Referred Provider Specialty Dermatology Referral Priority Routine Reason ongoing right ear pa in x months Diagnosis 1 Otalgia of right ear (H92.01) Referral Organization [facility] [place] Referring Provider First Name Amaya Referring Provider Last Name [facility] Referring Provider Specialty Family [employer] Referred Organization [facility] Referred Address ,[place], [place],[address] Referred Provider Specialty Otolaryngolo gy Referral Priority Routine Summary Purpose Family History No Family History Records Found Additional Source Comments Care Teams (unrecognized sec tion and content) Team Status: Inactive Member Role Status Dates Stefan Alford DO Emergency Provider Active PHYSICIAN NO FAMILY Primary Care Provider Active Team Status: Inactive Member Role Status Dates Amaya Nam DO Attending Provider Active Team Status: Active Member Role Status Joesf Nam DO Primary Care Provider Active Team Status: Inactive Member Role Status Josef Nam DO Attending Provider Active PHYSICIAN NO FAMILY Primary Care Provider Active Team Status: Inactive Member Role Status Josef Nam DO Primary Care Provider, Sheyla garza Active Team Status: Inactive Member Role Status Dates Alyssa May APRN [employer]PERATOR-C Attending Provider Active Start: August 12, 2023 End: August 12, 2023 Goals (unrecognized section and content) Goals may be documented in a n alternate sectionNo InformationGoals may be documented in an alternate sectionNo InformationNo InformationGoals may be documented in an alternate sectionNo InformationGoals may be documented in an alternate sectionGoals may be documented in an alternate sectionNo InformationNo InformationNo InformationNo InformationNo InformationNo InformationNo InformationGoals may be documented in an alternate sectionNo InformationNo InformationNo InformationNo InformationNo InformationGoals may be documented in an alternate section REASON FOR VISIT (unrecogniz ed section and content) EST CAREClonazepam doselab r esultslab resultsCholesterol medmy earRE:RE:my earUS resultsmammogram resultsmental healthlab resultsADD?3 month Follow upongoing ear issueinsurance inquiryENT REFERRAL INFORMATION SOURCE (unrecogn ized section and content) DATE CREATED AUTHOR 08/20/2023 [facility] FOR RECORDS PERTAINING TO PATIENTS WHO ARE OR HAVE BEEN ENROLLED IN A CHEMICAL DEPENDENCY/SUBSTANCEABUSE PROGRAM, SOME INFORMATION MAY BE OMITTED. This clinical summary was aggregated from multiple sources. Caution should be exercised in using it in the provision of clinical care. This summary normalizes information from multiple sources, and as a consequence, information in this document may materially change the coding, format and clinical context of patient data. In addition, data may be omitted in some cases. CLINICAL DECISIONS SHOULD BE BASED ON THE PRIMARY CLINICAL RECORDS. [employer] provides no warranty or guarantee of the accuracy or completeness of information in this document.
== END 2023-11-18 09:34 | disposition home or self-care (01) ==
LOC: US 09:33
DX: R13.12 Dysphagia, oropharyngeal phase (principal); Z86.39 Personal history of other endocrine, nutritional and metabolic disease
CPT/HCPCS: 76536

== ENCOUNTER 2023-11-30 10:35 | Outpatient (OUT) | payer OTHER, SELFPAY ==
--- NOTE | 2023-11-30 10:38 | FL_ITS ---
[address] [address] Patient Name: FLOYD KELLER MRN: [id number] date: 1965 Sex: F Assigned Patient Location: [place] Current Patient Location: [place] Accession/Order Number: [id number] Exam Date: 11/30/2023 11:00 Report Date: 11/30/2023 11:43 At the request of: NON-STAFF PHYSICIAN Procedure: FL modified barium swallow EXAMINATION: FL modified barium swallow HISTORY: Oropharyngeal dysphagia R13.12 FLUORO DOSE: unknown COMPARISON: No relevant comparison available. TECHNIQUE: A swallowing evaluation was performed with fluoroscopy in the usual manner. Standard level fluoroscopic mode of operation utilized. FINDINGS: ORAL PHASE: Normal deglutition. PHARYNGEAL PHASE: Normal swallowing. ASPIRATION: None. STRUCTURE: Normal. No visible obstruction, stricture, or dilatation. OTHER: Negative. FL/AR modified barium swallow IMPRESSION: Normal exam Electronically authenticated by: DAVID LOWERY Date: 11/30/2023 11:43
== END 2023-11-30 10:36 | disposition home or self-care (01) ==
LOC: FL 10:35
DX: R13.12 Dysphagia, oropharyngeal phase (principal)
CPT/HCPCS: 74230; 92611